=== PATIENT | female | born 1980 | race Caucasian/White ===

== ENCOUNTER 2018-10-28 22:08 | Inpatient (IN) ==
[2018-10-28] MEDS ORDERED: Piperacillin/Tazobactam 3.375 GM in 0.9 % Sodium Chloride Mini Bag 100 ML IVPB ONE (22:28)
--- NOTE | 2018-10-28 22:51 | Emergency Department Note ---
Disposition Clinical Impression: Abscess of right hand, Cellulitis of right hand Disposition: Admitted As Inpatient Condition: Fair Time of Disposition: 01:46 General Adult HPI - General Chief complaint: ED Wound/Laceration Stated complaint: Infection R Hand Time Seen by Provider: 10/28/18 22:24 Source: patient Limitations: no limitations Nursing Notes Reviewed: Yes Vital Signs Reviewed: Yes - History of Present Illness HPI Narrative: 38-year-old female presents from home for evaluation of right hand swelling, redness, pain. Patient actively cut her middle finger at work 4 days ago. She is managing with basic wound care. Did not require any closure or sutures. Today, she noticed redness and puffiness of her hands. She has nguyen where the erythema has progressed. She now has pain in the entirety of her hand extending up her forearm up to her shoulder and into her neck. She has chills. PMH: None Patient takes no daily medications. ROS: Positive: Accidental right middle finger laceration 4 days ago, progressive swelling and erythema of right hand today. Chills, pain radiating up to her ne ck. Negative: Pain with neck movement, other injuries, nausea, vomiting, measured fever Pain Scale: 9 - Related Data Previous Rx's Medication Instructions Recorded Mirtazapine [Remeron] 30 mg PO HS #30 tablet 03/18/16 Acetaminophen [Tylenol] 650 mg PO Q6HR PRN #20 tablet 04/07/16 Naproxen [Naprosyn] 500 mg PO BID PRN #15 tablet 04/08/16 Dicyclomine [Bentyl] 10 mg PO QID PRN #7 capsule 05/28/16 OxyCODONE/APAP 10/325 [Percocet 1 each PO Q6HR PRN #12 tablet 08/12/16 10/325 MG] Potassium Chloride [Klor-Con 10] 10 meq PO BID #14 tablet.er 08/12/16 Ibuprofen [Motrin] 800 mg PO Q8HR PRN #40 tablet 01/22/17 Ondansetron [Zofran] 8 mg PO TID PRN #8 tablet 01/22/17 Ibuprofen [Motrin] 600 mg PO Q6HR PRN #24 tab 03/23/17 Loratadine/Pseudophed (12 HR) 1 each PO BID #20 tab.er.12h 10/02/18 [Claritin D (12HR)] Promethazine/Dextromethorphan 5 ml PO QID #240 syrup 10/02/18 [Promethazine-Dm Syrup] Allergies Allergy/AdvReac Type Severity Reaction Status Date / Time ciprofloxacin [From Cipro] Allergy Hives Verified 10/02/18 13:53 doxycycline Allergy Hives Verified 10/02/18 13:53 Sulfa (Sulfonamide Allergy Hives Verified 10/02/18 13:53 Antibiotics) sulfamethoxazole Allergy Hives Verified 10/02/18 13:53 [From Bactrim] trimethoprim [From Bactrim] Allergy Hives Verified 10/02/18 13:53 All systems ED: reviewed and negative except as stated. 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 She is diaphoretic. Head: atraumatic, normocephalic Eye: normal appearance, PERRL, EOMI, no scleral icterus, no conjunctival injection ENT: mucous membranes moist, normal external ear exam Neck: normal inspection, trachea midline, full ROM Chest: normal inspection, symmetric chest rise Respiratory: Good respiratory effort. Bilateral breath sounds are clear without wheezing, crackles, or rhonchi. Cardiovascular: Tachycardic rate and regular rhythm. No clicks, rubs, gallops, or murmors. Normal heart sounds. Abdomen: Bowel sounds present normoactive. Abdomen is soft, nondistended, and nontender. No guarding or rebound. No organomegaly noted. Musculoskeletal: Pain with movement of right hand, right elbow, right shoulder. Skin: warm, dry, intact. Right hand has dorsal swelling with erythema and warmth that extends just proximal to the right wrist. She has tenderness without erythema extending up to the right shoulder. Neuro: GCS 15. No focal neurologic deficits observed. Psych: Patient's affect is appropriate for situation. - General Limitations: no limitations General appearance: alert Course Course Narrative: SIRS (+) via temp and HR. 12:00 I was called bedside by nursing. Patient has had her vancomycin infusing approximately 20 minutes. She states she has a tingling sensation in her lips and feels as though they are swollen and numb. In regards to a potential allergic reaction, patient does have vancomycin once previously without issue. The medication is infusing into the dorsum of left hand; there is no swelling, erythema, or urticaria. Vital Signs Temperature 102.8 F H 10/28/18 22:09 Pulse Rate 134 10/28/18 22:09 Respiratory Rate 18 10/28/18 22:09 Blood Pressure 155/84 10/28/18 22:09 O2 Sat by Pulse Oximetry 96 10/28/18 22:09 Temperature 102.8 F H 10/28/18 22:09 Pulse Rate 104 10/29/18 00:53 Respiratory Rate 19 10/29/18 00:53 Blood Pressure 110/68 10/29/18 00:53 O2 Sat by Pulse Oximetry 97 10/29/18 00:53 Oxygen Delivery Oxygen Delivery Room Air Medical Decision Making - Lab Data Result diagrams: 10/28/18 22:38 10/28/18 22:38 Lab Results 10/28/18 10/28/18 10/28/18 Range/Units 22:38 22:38 22:38 WBC 27.0 H (4.3-11.1) K/mcL RBC 4.14 (3.82-4.97) M/mcL Hgb 14.2 (11.5-15.4) g/dL Hct 41.4 (35.3-44.9) % MCV 100.0 (83.0-100.0) fL MCH 34.3 H (28.0-33.3) pg MCHC 34.3 (31.6-35.5) g/dL RDW 12.7 (11.5-14.5) % Plt Count 179 (140-400) K/mcL MPV 10.0 (9.4-12.4) fL ESR (0-15) mm/hr Sodium 130 L (136-145) mEq/L Potassium 3.7 (3.5-5.1) mEq/L Chloride 103 (98-107) mEq/L Carbon Dioxide 20 L (23-29) mEq/L BUN 12 (6-20) mg/dL Creatinine 0.97 (0.60-1.20) mg/dL Est GFR ( Amer) > 60 (> 60) Est GFR (Non-Af Amer) > 60 (> 60) BUN/Creatinine Ratio 12 (6-26) Glucose 151 H (70-105) mg/dL Calculated Osmolality 273 L (280-300) Lactic Acid 1.6 (0.5-2.2) mmol/L Calcium 8.7 (8.6-10.3) mg/dL Total Bilirubin 0.7 (0.3-1.0) mg/dL Direct Bilirubin 0.2 (0.0-0.2) mg/dL Indirect Bilirubin 0.5 (0.0-1.2) mg/dL AST 16 (13-39) Units/L ALT 18 (7-52) Units/L Alkaline Phosphatase 65 (34-104) Units/L C-Reactive Protein 239 H (Less than 10) mg/L Serum Total Protein 6.8 (6.4-8.9) g/dL Albumin 3.9 (3.5-5.7) g/dL Globulin 2.9 (2.4-3.5) g/dL Albumin/Globulin Ratio 1.3 (1.1-2.2) Serum , Qual (Negative) 10/28/18 10/29/18 Range/Units 22:38 00:28 WBC (4.3-11.1) K/mcL RBC (3.82-4.97) M/mcL Hgb (11.5-15.4) g/dL Hct (35.3-44.9) % MCV (83.0-100.0) fL MCH (28.0-33.3) pg MCHC (31.6-35.5) g/dL RDW (11.5-14.5) % Plt Count (140-400) K/mcL MPV (9.4-12.4) fL ESR 17 H (0-15) mm/hr Sodium (136-145) mEq/L Potassium (3.5-5.1) mEq/L Chloride (98-107) mEq/L Carbon Dioxide (23-29) mEq/L BUN (6-20) mg/dL Creatinine (0.60-1.20) mg/dL Est GFR ( Amer) (> 60) Est GFR (Non-Af Amer) (> 60) BUN/Creatinine Ratio (6-26) Glucose (70-105) mg/dL Calculated Osmolality (280-300) Lactic Acid (0.5-2.2) mmol/L Calcium (8.6-10.3) mg/dL Total Bilirubin (0.3-1.0) mg/dL Direct Bilirubin (0.0-0.2) mg/dL Indirect Bilirubin (0.0-1.2) mg/dL AST (13-39) Units/L ALT (7-52) Units/L Alkaline Phosphatase (34-104) Units/L C-Reactive Protein (Less than 10) mg/L Serum Total Protein (6.4-8.9) g/dL Albumin (3.5-5.7) g/dL Globulin (2.4-3.5) g/dL Albumin/Globulin Ratio (1.1-2.2) Serum , Qual Negative (Negative) Critical Care Time Critical Care Time: Yes Total Critical Care Time: 37 Attestation: Acute febrile illness with bacteremia and tachycardia requiring IV fluid r esuscitation, IV antibiotics, and emergent surgical consultation and treatment by the orthopedist due to right hand and wrist a ascending cellulitis with abscess Attestation Statement - Attestation Attestation: Dr. Fulton note: Patient was seen in conjunction with emergency medicine resident Dr. Joseph. Please see his charting for complete documentation. I spent [id number] time with the patient and I agree with patient's treatment and disposition. Imaging results, blood work, heart rate all reviewed. Progressive a ascending cellulitis with abscess of the right hand dorsal aspect with swelling and pain to the right elbow or right axillary region over the past 5 days which has been progressive. Arrives febrile and tachycardic. We emergently consult in the orthopedist Dr. Causey who took the patient's the operating room. Cultures were obtained, fluid resuscitation has been done. Images obtained, IV antibiotics/ fluids/ antibiotics given;
[2018-10-28 22:52] LABS: Mean Corpuscular HGB Conc 34.3 g/dL (31.6-35.5)
[2018-10-28 22:53] LABS: Hematocrit 41.4 % (35.3-44.9); Hemoglobin 14.2 g/dL (11.5-15.4); Mean Corpuscular Hemoglobin 34.3 pg (28.0-33.3); Platelet Count 179 K/mcL (140-400); Red Blood Count 4.14 M/mcL (3.82-4.97); Red Cell Distribution Width 12.7 % (11.5-14.5)
[2018-10-28] MEDS: Piperacillin/Tazobactam 3.375 GM in 0.9 % Sodium Chloride Mini Bag 100 ML IVPB ONE ×2 (23:05→23:20)
[2018-10-28 23:12] LABS: Alanine Aminotransferase 18 Units/L (7-52); Albumin 3.9 g/dL (3.5-5.7); Albumin/Globulin Ratio 1.3 (1.1-2.2); Alkaline Phosphatase 65 Units/L (34-104); Aspartate Amino Transferase 16 Units/L (13-39); BUN/Creatinine Ratio 12 (6-26); Bilirubin,Direct 0.2 mg/dL (0.0-0.2); Bilirubin,Indirect 0.5 mg/dL (0.0-1.2); Bilirubin,Total 0.7 mg/dL (0.3-1.0); Blood Urea Nitrogen 12 mg/dL (6-20); Calcium 8.7 mg/dL (8.6-10.3); Carbon Dioxide 20 mEq/L (23-29); Chloride 103 mEq/L (98-107); Globulin 2.9 g/dL (2.4-3.5); Glucose 151 mg/dL (70-105); Osmolality,Calculated 273 (280-300); Potassium 3.7 mEq/L (3.5-5.1); Sodium 130 mEq/L (136-145); Total Protein 6.8 g/dL (6.4-8.9); eGFR For Non-African Americans > 60 (> 60)
[2018-10-28] MEDS ORDERED: Isovue-370 500 ML BOTTLE IVP ONE ×2 (23:17→23:19)
[2018-10-28] MEDS ORDERED: 0.9 % Sodium Chloride 1,000 ML IVC STA (23:30)
[2018-10-29 00:04] LABS: C-Reactive Protein 239 mg/L (Less than 10)
[2018-10-29] MEDS ORDERED: *HR* LORazepam 2 MG/ML VIAL IVP ONE (00:04)
--- NOTE | 2018-10-29 00:39 | Orthopedic Consult Note ---
Date of Encounter: 10/29/18 Time of Encounter: 00:38 Assessment and Plan (1) Abscess of hand Current Visit: Yes Status: Acute I did have a long discussion with the patient regarding the diagnosis. She has an abscess to the dorsal aspect of the hand with sepsis. My recommendation is for urgent incision, drainage, irrigation, and debridement of the right hand. We will keep her on broad-spectrum antibiotics and she will be admitted to the hospitalist. I have ordered a CT scan with contrast to further evaluate the extent of the abscess as well as to evaluate for subcutaneous air. The risks discussed included but were not limited to stiffness, bleeding, infection, blood clots, damage to neurovascular structures, tendons, ligaments, and bone. Also discussed was the risk of continued symptoms and possible need for further procedures. I did discuss the anesthesia risks including stroke, heart attack, and . I did discuss the reasonable, foreseeable postoperative course with the patient. The patient did wish to proceed and consent was obtained. I have reviewed each of the pertinent components of this chart and any other pertinent medical component(s) including but not limited to pertinent application of the chief complaint, history of present illness, current medication, medical history, allergies, family history, medical history, surgical history, social history, review of systems, vital signs, and any other portion of the pertinent patient medical record directly or indirectly involved with this patient care that is pertinent based on my medical decision process. LUIS Beck History of Present Illness HPI: Ms. Bhat is a 38 year old female who presents to the emergency department with a 4 day history of right hand pain. She indicates a prior history of IV drug use, however she says she has been clean for about 3 years or so. She has a severe hand infection with sepsis and I am consulted to assist in the evaluation and management. She indicates that she sustained a cut injury to the dorsal aspect of the long finger, though she says she does not remember being cut. She said this spread into the dorsal hand area and was achy pains that radiate to the shoulder and neck region. She says she has had multiple surgeries on the right hand previously related to carpal tunnel syndrome and bone spur excision. Pain is sharp and achy and worse with any movement of the right hand and better with rest. She denies any numbness, tingling, or any other associated signs or symptoms or modifying factors. She does feel ill. Past Med Surg Social Fam HX - Past Medical History Medical history: fibromyalgia, hypertension Additional medical history: DJD Psychiatric history: anxiety, ADHD, depression, PTSD, previous psychiatric hospitalization - Past Surgical History Surgical History: cholecystectomy, orthopedic, other, other Additional surgical history: ankle sx X 3, numerous hand sx - Social History Smoking Status: Current every day smoker Smokeless Tobacco Status: No Alcohol use: occasionally Drug use: marijuana Medications and Allergies Mirtazapine [Remeron] 30 mg PO HS #30 tablet 03/18/16 [Rx] Acetaminophen [Tylenol] 650 mg PO Q6HR PRN #20 tablet 04/07/16 [Rx] Naproxen [Naprosyn] 500 mg PO BID PRN #15 tablet 04/08/16 [Rx] Dicyclomine [Bentyl] 10 mg PO QID PRN #7 capsule 05/28/16 [Rx] OxyCODONE/APAP 10/325 [Percocet 10/325 MG] 1 each PO Q6HR PRN #12 tablet 08/12/16 [Rx] Potassium Chloride [Klor-Con 10] 10 meq PO BID #14 tablet.er 08/12/16 [Rx] Ibuprofen [Motrin] 800 mg PO Q8HR PRN #40 tablet 01/22/17 [Rx] Ondansetron [Zofran] 8 mg PO TID PRN #8 tablet 01/22/17 [Rx] Ibuprofen [Motrin] 600 mg PO Q6HR PRN #24 tab 03/23/17 [Rx] Loratadine/Pseudophed (12 HR) [Claritin D (12HR)] 1 each PO BID #20 tab.er.12h 10/02/18 [Rx] Promethazine/Dextromethorphan [Promethazine-Dm Syrup] 5 ml PO QID #240 syrup 10/02/18 [Rx] Allergy/AdvReac Type Severity Reaction Status Date / Time ciprofloxacin [From Cipro] Allergy Hives Verified 10/02/18 13:53 doxycycline Allergy Hives Verified 10/02/18 13:53 Sulfa (Sulfonamide Allergy Hives Verified 10/02/18 13:53 Antibiotics) sulfamethoxazole Allergy Hives Verified 10/02/18 13:53 [From Bactrim] trimethoprim [From Bactrim] Allergy Hives Verified 10/02/18 13:53 All Systems Reviewed: Constitutional -The patient denies any fevers, chills, or feelings of illness Neurologic -The patient denies any numbness, tingling, or burning pains Physical Exam - Constitutional Vitals: Temp Pulse Resp BP Pulse Ox 102.8 F H 114 22 157/108 98 10/28/18 22:09 10/29/18 00:06 10/29/18 00:06 10/29/18 00:06 10/29/18 00:06 CONSTITUTIONAL -Vitals reviewed -The patient is well developed, well nourished, well groomed PSYCHIATRIC -Fully alert and oriented -Pleasant mood RIGHT UPPER EXTREMITY Inspection shows moderate swelling over the dorsal aspect of the right hand with significant tenderness in this region. There is a very small well-healed 5 mm transverse wound over the long finger PIP joint region, however this appears to be very superficial and scabbed over well. There does not appear to be any infection in this region. There is mild erythema localized to the dorsal hand region. There is associated palpable fluctuance in the dorsal hand without significant induration. I can gently passively range the wrist, elbow, and shoulder without significant pain. She can gently flex and extend the digits though there is some limitation due to pain inhibition. The fingertips are all grossly sensate and well-perfused, and the radial artery pulse is 2+. Results - Labs Result Diagrams: 10/28/18 22:38 10/28/18 22:38 Labs: Abnormal lab results WBC 27.0 K/mcL (4.3-11.1) H 10/28/18 22:38 MCH 34.3 pg (28.0-33.3) H 10/28/18 22:38 ESR 17 mm/hr (0-15) H 10/28/18 22:38 Sodium 130 mEq/L (136-145) L 10/28/18 22:38 Carbon Dioxide 20 mEq/L (23-29) L 10/28/18 22:38 Glucose 151 mg/dL (70-105) H 10/28/18 22:38 273 (280-300) L 10/28/18 22:38 239 mg/L (Less than 10) H 10/28/18 22:38 H & H 10/28/18 Range/Units 22:38 Hgb 14.2 (11.5-15.4) g/dL Hct 41.4 (35.3-44.9) % All other labs normal. Consult Discharge Plan - Plan Referrals: NONE,PCP [Primary Care Provider] -
[2018-10-29] MEDS ORDERED: 0.9 % Sodium Chloride 1,000 ML ONE (00:44)
[2018-10-29] MEDS ORDERED: 0.9 % Sodium Chloride 1,000 ML IVC ONE (00:52)
[2018-10-29] MEDS ORDERED: Bupivacaine/EPI 1:200k 0.5%PF 30 ML VIAL ONE (01:19)
[2018-10-29] MEDS ORDERED: Lidocaine 1% 20 ML MDV ONE (01:19)
[2018-10-29] MEDS ORDERED: Lidocaine/EPI 1:100k 1% 20 ML VIAL ONE (01:19)
[2018-10-29] MEDS ORDERED: Albuterol 2.5 MG/3 ML NEBULIZER ONE (01:28)
--- NOTE | 2018-10-29 01:28 | Anesthesia Evaluation PreOp ---
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: Other (FIBROMYALGIA, ANXIETY, DEPRESSION,) Anesthesia History: No Prior Anesthetic Complications, Past Anesthesia : No Test: Negative Alcohol Use: occasionally Drug use: marijuana Medications and Allergies Mirtazapine [Remeron] 30 mg PO HS #30 tablet 03/18/16 [Rx] Acetaminophen [Tylenol] 650 mg PO Q6HR PRN #20 tablet 04/07/16 [Rx] Naproxen [Naprosyn] 500 mg PO BID PRN #15 tablet 04/08/16 [Rx] Dicyclomine [Bentyl] 10 mg PO QID PRN #7 capsule 05/28/16 [Rx] OxyCODONE/APAP 10/325 [Percocet 10/325 MG] 1 each PO Q6HR PRN #12 tablet 08/12/16 [Rx] Potassium Chloride [Klor-Con 10] 10 meq PO BID #14 tablet.er 08/12/16 [Rx] Ibuprofen [Motrin] 800 mg PO Q8HR PRN #40 tablet 01/22/17 [Rx] Ondansetron [Zofran] 8 mg PO TID PRN #8 tablet 01/22/17 [Rx] Ibuprofen [Motrin] 600 mg PO Q6HR PRN #24 tab 03/23/17 [Rx] Loratadine/Pseudophed (12 HR) [Claritin D (12HR)] 1 each PO BID #20 tab.er.12h 10/02/18 [Rx] Promethazine/Dextromethorphan [Promethazine-Dm Syrup] 5 ml PO QID #240 syrup 0 10/02/18 [Rx] Allergy/AdvReac Type Severity Reaction Status Date / Time ciprofloxacin [From Cipro] Allergy Hives Verified 10/02/18 13:53 doxycycline Allergy Hives Verified 10/02/18 13:53 Sulfa (Sulfonamide Allergy Hives Verified 10/02/18 13:53 Antibiotics) sulfamethoxazole Allergy Hives Verified 10/02/18 13:53 [From Bactrim] trimethoprim [From Bactrim] Allergy Hives Verified 10/02/18 13:53 - Meds/Allergy Pre-op Review Medications Reviewed: Yes Allergies Reviewed: Yes Anesthesia Results - Labs 10/28/18 22:38 10/28/18 22:38 Anesthesia Exam Vital Signs/O2 Sat/Glucose, Most Recent Temp Pulse Resp BP Pulse Ox 102.8 F H 104 19 110/68 97 10/28/18 22:09 10/29/18 00:53 10/29/18 00:53 10/29/18 00:53 10/29/18 00:53 Weight: 81 KG - BMI 30 NPO (# of Hours): 8 - HEENT Mallampati: II Teeth: Edentulous - Cardiac Rhythm: Regular - Pulmonary Breath Sounds: bilateral Clear Anesthesia Assess/Plan ASA Score: 2, E Anesthetic Plan: General Monitoring Plan: Standard Monitors Recovery Plan: PACU
[2018-10-29] MEDS ORDERED: *HR* OxyCODONE Immed Rel 5 MG TABLET PO PRN ×2 (01:35→03:19)
[2018-10-29] MEDS ORDERED: Acetaminophen IV 1,000 MG/100 ML INFUS..BTL IVPB ONE ×2 (01:35→03:19)
[2018-10-29] MEDS ORDERED: *HR* HYDROmorphone (PF) 1 MG/ML SYRINGE IVP PRN ×2 (01:35→03:19)
[2018-10-29] MEDS ORDERED: *HR* FentaNYL (PF) 100 MCG/2 ML VIAL ONE (01:41)
[2018-10-29] MEDS ORDERED: *HR* Propofol 200 MG/20 ML VIAL IVP ONE (01:41)
[2018-10-29] MEDS ORDERED: Lidocaine -MPF 2% 2 ML VIAL ONE (01:48)
[2018-10-29] MEDS ORDERED: *HR* HYDROMORPHONE 2 MG/ML VIAL ONE (01:51)
[2018-10-29] MEDS ORDERED: Ketorolac 30 MG/ML VIAL ONE (01:51)
[2018-10-29] MEDS ORDERED: Ondansetron 4 MG/2 ML VIAL ONE (01:56)
--- NOTE | 2018-10-29 02:24 | Orthopedic Operative Note ---
Date of procedure: 10/29/18 Procedure: OPERATIVE REPORT SURGEON: Ervin Ricks MD PREOPERATIVE DIAGNOSIS: Right dorsal hand abscess POSTOPERATIVE DIAGNOSIS: Right dorsal hand abscess PROCEDURE: Incision, drainage, irrigation, debridement of the right dorsal hand ANESTHESIA: Gen. anesthesia SPECIMENS: Swabs of the dorsal hand for culture PREOPERATIVE NOTE The surgical plan was reviewed with the patient. The risks, benefits, alternatives, and potential complications of this procedure were discussed with the patient including injury to veins, arteries, nerves, tendons, ligaments, and bone. Also discussed were the risks of infection, bleeding, pain, blood clots, the possible need for a blood transfusion, the possible need for further procedures, heart attack, stroke, and . Additional risks include persistent symptoms despite surgery and the need for further debridements. All of this was explained in simple terms, and the patient verbalized understanding and wished to proceed. Consent was given to proceed with surgery. PROCEDURE: The patient was seen in the preoperative holding area where the identify and the consent were confirmed. The right hand was marked. Final questions were answered. The patient was brought back to the operating room and placed supine on the operating room table. A huddle was performed with the patient and all vital surgical team members confirming patient identity, the correct procedure, and the correct operative site. Gen. anesthesia was administered. The op erative extremity was prepped and draped in the usual sterile fashion. A surgical time out was performed immediately preceding the incision with all personnel in the operating room to confirm patient identity, the correct operative site and extremity, correct radiographic studies, availability of appropriate surgical equipment, and agreement on the planned procedure. The tourniquet was inflated without exsanguination. Next extensile dorsal longitudinal incision measuring about 10 cm was placed on the mid dorsal aspect of the hand and dissection proceeded carefully through the skin and the s ubcutaneous tissue. Once the area where tissue was opened, copious amounts of grossly purulent material was evacuated which tracked deep to the extensor tendons. The area was swabbed for cultures. This area was spread open and copiously irrigated with 3 L of saline. There is no significant necrotic material. There was dense scarring superficial to the extensor tendons which was sharply debrided. After final irrigation of another 3 L of saline the wound was very loosely closed just in the center portion over a [place] drain to allow adequate drainage. A soft, sterile dressing was applied. The instrument, sponge, and needle counts were correct after wound closure. POST OPERATIVE PLAN: Continue IV antibiotics and will follow clinically. Was there an logging assistant present: No Estimated blood loss (cc): 5
[2018-10-29] MEDS ORDERED: *HR* Nalbuphine 10 MG/ML AMPUL ONE (02:26)
--- NOTE | 2018-10-29 02:38 | Anesthesia Evaluation Post Op ---
Date of Encounter: 10/29/18 Time of Encounter: 03:05 - Discharge PostOp Status: Transfer Patient to floor (Patient's vital signs have been reviewed. Patient is stable postoperatively and has adequately recovered from anesthesia. Patient is determined to have stable airway patency and respiratory function including respiratory rate and oxygen saturation. Patient has a stable heart rate, blood pressure and adequate hydration. Patients mental status is acceptable. Patients temperature is appropriate. Pain and nausea are adequately controlled.)
[2018-10-29] MEDS ORDERED: Isovue-370 500 ML BOTTLE IVP ONE (03:19)
[2018-10-29] MEDS ORDERED: Naloxone 0.4 MG/ML INJ IVP PRN (03:50)
--- NOTE | 2018-10-29 03:54 | Internal Med History&Physical ---
Date of Encounter: 10/29/18 Time of Encounter: 03:53 Internal Medicine - H&P: HPI Chief complaint: arm pain Admitted From: Home Plans for Post Hospital Care: Home History of present illness: Nel Bhat is a 38 year old woman with substance use disorder and depression who presented to the ER with 4 days of right hand pain and swelling that developed after suffering a cut to her middle finger at work reportedly. She had been applying basic wound care but progressively worsened to a point of puffiness and progression of the erythema. She now had pain going from her hand up into the length of her arm as well as chills. On arrival here she was febrile and tachycardic. Lab worked revealed leukocytosis of 27.0 and CRP of 239. She was started on vancomycin but developed a systemic allergic reaction prompting stoppage and diphenhydramine. She has seen by the orthopedic service with the recommendation to undergo urgent incision and drainage of the dorsal hand infection and was taken to the OR where copious amounts of grossly purulent material was evacuated that had tracked deep to the extensor tendons. She is admitted to the medicine service for further care. Vitals: Reviewed General: Well-developed woman in NAD Skin: Warm and supple. HEENT: Moist mucous membranes. No conjunctivae pallor. Neck: No lymphadenopathy. No JVD. No carotid bruits. No palpable thyroid. Chest: Normal thoracic expansion. Normal breath sounds. Clear to auscultation. Heart: Normal S1 & S2; rhythmic. No rubs or murmurs. Abdomen: Non-distended, soft and non-tender to palpation. No peritoneal reaction. Extremities: Right forearm covered in bandage. Able to move fingers. No cyanosis. Neurological: Awake, alert and oriented to person, place and time. No focal deficits. Psych: Affect appropriate. Assessment/Plan 1. Sepsis secondary to right hand skin/soft tissue infection: Given allergy to vancomycin and other agents already listed, will recommend a trial of weight based daptomycin if intolerant to vancomycin. Monitor tissue and blood cultures. Analgesics as needed. Keep arm elevated. 2. Substance use disorder: Will check UDS. Says she has been clean for a long time. 5 minutes were spent counseling and educating the patient on this habit. dietary services director and resources were made available. 3. Depressive disorder: No active signs of SI or thoughts of self-harm. 4. DVT prophylaxis: SubQ heparin ordered. Past Med Surg Social Fam HX - Past Medical History Medical history: fibromyalgia, hypertension Additional medical history: DJD Psychiatric history: anxiety, ADHD, depression, PTSD, previous psychiatric hospitalization - Past Surgical History Surgical History: cholecystectomy, orthopedic, other, other Additional surgical history: ankle sx X 3, numerous hand sx - Social History Smoking Status: Current every day smoker Smokeless Tobacco Status: No Alcohol use: occasionally Drug use: marijuana Internal Medicine - H&P: Meds Mirtazapine [Remeron] 30 mg PO HS #30 tablet 03/18/16 [Rx] Acetaminophen [Tylenol] 650 mg PO Q6HR PRN #20 tablet 04/07/16 [Rx] Naproxen [Naprosyn] 500 mg PO BID PRN #15 tablet 04/08/16 [Rx] Dicyclomine [Bentyl] 10 mg PO QID PRN #7 capsule 05/28/16 [Rx] OxyCODONE/APAP 10/325 [Percocet 10/325 MG] 1 each PO Q6HR PRN #12 tablet 08/12/16 [Rx] Potassium Chloride [Klor-Con 10] 10 meq PO BID #14 tablet.er 08/12/16 [Rx] Ibuprofen [Motrin] 800 mg PO Q8HR PRN #40 tablet 01/22/17 [Rx] Ondansetron [Zofran] 8 mg PO TID PRN #8 tablet 01/22/17 [Rx] Ibuprofen [Motrin] 600 mg PO Q6HR PRN #24 tab 03/23/17 [Rx] Loratadine/Pseudophed (12 HR) [Claritin D (12HR)] 1 each PO BID #20 tab.er.12h 10/02/18 [Rx] Promethazine/Dextromethorphan [Promethazine-Dm Syrup] 5 ml PO QID #240 syrup 10/02/18 [Rx] Allergy/AdvReac Type Severity Reaction Status Date / Time ciprofloxacin [From Cipro] Allergy Hives Verified 10/02/18 13:53 doxycycline Allergy Hives Verified 10/02/18 13:53 Sulfa (Sulfonamide Allergy Hives Verified 10/02/18 13:53 Antibiotics) sulfamethoxazole Allergy Hives Verified 10/02/18 13:53 [From Bactrim] trimethoprim [From Bactrim] Allergy Hives Verified 10/02/18 13:53 All Systems PM: A 10-system review of systems was performed and is negative for pertinent findings except as documented above in the HPI. Family history reviewed and found non-contributory. - Constitutional Vitals: Temp Pulse Resp BP Pulse Ox 98.1 F 116 16 122/58 94 10/29/18 03:34 10/29/18 03:34 10/29/18 03:34 10/29/18 03:34 10/29/18 03:34 Exam: . Internal Med - H&P Results - Labs CBC & Chem 7: 10/28/18 22:38 10/28/18 22:38 Labs: Short CBC 10/28/18 Range/Units 22:38 WBC 27.0 H (4.3-11.1) K/mcL Hgb 14.2 (11.5-15.4) g/dL Hct 41.4 (35.3-44.9) % Plt Count 179 (140-400) K/mcL BMP 10/28/18 22:38 Sodium 130 L Potassium 3.7 Chloride 103 Carbon Dioxide 20 L BUN 12 Creatinine 0.97 Glucose 151 H Calcium 8.7 Liver Function 10/28/18 Range/Units 22:38 Total Bilirubin 0.7 (0.3-1.0) mg/dL Direct Bilirubin 0.2 (0.0-0.2) mg/dL AST 16 (13-39) Units/L ALT 18 (7-52) Units/L Alkaline Phosphatase 65 (34-104) Units/L Albumin 3.9 (3.5-5.7) g/dL - Impressions ITS Impressions Upper Extremity CT 10/29/18 23:17 IMPRESSION: Soft tissue edema and inflammation along the dorsal aspect of the hand. No fluid collection. D/ / Yanely Pop MD / Yanely Pop MD Interpreting Provider: Yanely Pop MD - Time Spent With Patient Total time spent is greater than 50% in coordination of care (as documented) at patient's floor/unit and/or counseling patient: Greater than 35 minutes
[2018-10-29] MEDS ORDERED: Clindamycin 900 MG/50 ML 900 MG/50 ML IV.SOLN IVPB SCH (04:00)
--- NOTE | 2018-10-29 04:40 | Event Note ---
Date of Encounter: 10/29/18 Time of Encounter: 04:35 Alerted by patient's nurse BHARGAVI Gallo that patient has vancomycin ordered at 11:00. Patient had vancomycin in ED and reported lips were tingling and swelling. ED gave Benadryl. Discussed patient with Dr. Pfeiffer before with recommendation to DC vancomycin and clindamycin and replace with daptomycin 500 mg daily with first dose at 09:00. Nurse instructed to monitor patient very closely and alert me immediately of any adverse or allergic reactions.
[2018-10-29] MEDS: Ringers Solution, Lactated 1,000 ML IVC SCH ×2 (05:01→15:23)
--- NOTE | 2018-10-29 08:15 | Event Note ---
Date of Encounter: 10/29/18 Time of Encounter: 08:15 Seen and assessed and agree with plan per night team Plan Right hand cellulitis. S/p debridement by orthopedic surgery. Appeared to have an allergy to vanc or zosyn in the ER with tongue numbness and tingling. Swithced to daptpmycin. Cefepime and metronidazole added to regimen. ID recs appreciated
[2018-10-29] MEDS: *HR* Heparin 5,000 UNIT/ML VIAL SQ SCH ×2 (08:45→16:45)
[2018-10-29] MEDS: DAPTOmycin 500 MG in 0.9 % Sodium Chloride 100 ML IVPB SCH (08:46)
[2018-10-29] MEDS: traMADol 50 MG TABLET PO PRN ×3 (08:54→22:07)
[2018-10-29] MEDS ORDERED: DAPTOmycin 500 MG in 0.9 % Sodium Chloride 100 ML IVPB SCH (09:00)
[2018-10-29] MEDS ORDERED: Aminoglycoside Consult 1 EACH MC ONE (10:27)
[2018-10-29] MEDS: Cefepime HCl 2,000 MG in 0.9 % Sodium Chloride Mini Bag 100 ML IVPB SCH ×2 (11:35→16:45)
[2018-10-29] MEDS: Acetaminophen 325 MG TABLET PO PRN ×2 (11:35→18:33)
[2018-10-29 12:02] LABS: Hematocrit 38.8 % (35.3-44.9); Lymphocytes # 1.7 K/mcL (0.6-4.6); Mean Corpuscular HGB Conc 33.5 g/dL (31.6-35.5); Mean Corpuscular Hemoglobin 34.1 pg (28.0-33.3); Mean Corpuscular Volume 101.8 fL (83.0-100.0); Mean Platelet Volume 10.1 fL (9.4-12.4); Platelet Count 177 K/mcL (140-400); Red Blood Count 3.81 M/mcL (3.82-4.97); Red Cell Distribution Width 13.2 % (11.5-14.5)
[2018-10-29 12:19] LABS: BUN/Creatinine Ratio 15 (6-26); Blood Urea Nitrogen 12 mg/dL (6-20); Calcium 8.4 mg/dL (8.6-10.3); Carbon Dioxide 20 mEq/L (23-29); Chloride 111 mEq/L (98-107); Glucose 123 mg/dL (70-105); Osmolality,Calculated 287 (280-300); Sodium 138 mEq/L (136-145); eGFR For Non-African Americans > 60 (> 60)
[2018-10-29 12:38] LABS: Basophils # 0.4 K/mcL (0.0-0.2); Neutrophils # 18.8 K/mcL (1.6-8.9); Reactive Lymphocytes Present (Not Present)
[2018-10-29 12:39] LABS: Platelet Estimate Normal (Normal)
--- NOTE | 2018-10-29 13:29 | Infectious Disease Consult ---
Infectious Disease-Consult - Encounter Date/Time Date of Encounter: 10/29/18 Time of Encounter: 13:24 - Data of Consult Patient: new to practice Reason for consult: Right hand cellulitis Consult date: 10/29/18 Requesting Physician: Perry Morillo MD Primary Care Provider: PCP NONE - HPI HPI: Patient is a 38-year-old woman who presented to [facility] with right hand abscess and cellulitis. We are consulted today for antibiotics recommendations. Patient is a 38-year-old woman with history of IV drug use. She adamantly states that she has not used drugs in the last 3 years. She also has a history of hepatitis C and history of MRSA in the remote past presented to [facility] with a 4 day course of pain and swelling of the right hand. Patient apparently tells us that she had a cup worth of her middle finger but most of the pain and swelling was in the palm of her hand. Patient also admitted to having fevers chills and rigors at home. Since admission, MAXIMUM TEMPERATURE is 102.8, tachycardic no tachypnea. Presenting WBC was 27,000. patient had 30% Bands. BUN/Cr 12/0.81. ESR/Crp 1 239. Blood cultures x2 on 10/[address] of right UE reveals "Soft tissue edema and inflammation along the dorsal aspect of the hand. No fluid collection." Patient underwent incision, drainage, irrigation and debridement of the right dorsal hand by Dr. Causey on 10/29/2018. All are report reveals copious amounts of grossly purulent material was evacuated and tracked deep to the extensor tendons. Cultures were sent. Patient is on daptomycin and cefepime. We were asked to evaluate the patient's make further recommendations. Patient was started on vancomycin and she stated she had numbness of her lips and swelling of her tongue. Vancomycin. Patient was switched to daptomycin. Patient does not recall what allergy so she have to Doxy, sulfa, and Cipro. She does tell me that previously she had Bactrim and was given a combination of these 2 antibiotics and she had hives and they do not know which one caused it. Patient currently admits to URI symptoms. She said she has been fighting a cold for a couple weeks. Patient denies any chest pain or shortness of breath. No pleuritic chest pain. She does have cough. No sputum production. Patient denies nausea or vomiting. She denies any constipation but she does have diarrhea which she says is normal for her. Patient tells me she has history of chronic diarrhea. Patient denies any urinary symptoms no rash no joint pain. - ROS Review of Systems: 10 point review of systems done, negative other for what mentioned in history of present illness - Results CBC & Chem 7: 10/29/18 11:31 10/29/18 11:31 - Exam Vitals: Temp Pulse Resp BP Pulse Ox 98.6 F 101 16 120/73 96 10/29/18 12:16 10/29/18 12:16 10/29/18 12:16 10/29/18 12:16 10/29/18 12:16 Exam: GENERAL: Laying in bed, appears comfortable. HEAD: Normocephalic atraumatic EYES: PERRLA, EOMI, no conjunctival hemorrhage, sclera anicteric ENT: Mucous membranes moist, no oral thrush NECK: Supple. No meningeal signs. No masses LUNGS: Chest expanding symmetrically. bilateral exp wheezing CV: RRR, S1S2, I did not appreciate any murmur ABDOMEN: Soft, nontender, nondistended. Bowel sounds audible BACK: No CVA tenderness. Normal inspection. No tenderness over the spine EXTREMITY: Right hand/wrist surgically wrapped. SKIN: Normal color. No rash. NEURO: Awake alert oriented 3. No obvious focal deficit PSYCH: Calm and appropriate. No agitation. Mirtazapine [Remeron] 30 mg PO HS #30 tablet 03/18/16 [Rx] Acetaminophen [Tylenol] 650 mg PO Q6HR PRN #20 tablet 04/07/16 [Rx] Naproxen [Naprosyn] 500 mg PO BID PRN #15 tablet 04/08/16 [Rx] Dicyclomine [Bentyl] 10 mg PO QID PRN #7 capsule 05/28/16 [Rx] OxyCODONE/APAP 10/325 [Percocet 10/325 MG] 1 each PO Q6HR PRN #12 tablet 08/12/16 [Rx] Potassium Chloride [Klor-Con 10] 10 meq PO BID #14 tablet.er 08/12/16 [Rx] Ibuprofen [Motrin] 800 mg PO Q8HR PRN #40 tablet 01/22/17 [Rx] Ondansetron [Zofran] 8 mg PO TID PRN #8 tablet 01/22/17 [Rx] Ibuprofen [Motrin] 600 mg PO Q6HR PRN #24 tab 03/23/17 [Rx] Loratadine/Pseudophed (12 HR) [Claritin D (12HR)] 1 each PO BID #20 tab.er.12h 10/02/18 [Rx] Promethazine/Dextromethorphan [Promethazine-Dm Syrup] 5 ml PO QID #240 syrup 10/02/18 [Rx] Allergy/AdvReac Type Severity Reaction Status Date / Time ciprofloxacin [From Cipro] Allergy Hives Verified 10/02/18 13:53 doxycycline Allergy Hives Verified 10/02/18 13:53 Sulfa (Sulfonamide Allergy Hives Verified 10/02/18 13:53 Antibiotics) sulfamethoxazole Allergy Hives Verified 10/02/18 13:53 [From Bactrim] trimethoprim [From Bactrim] Allergy Hives Verified 10/02/18 13:53 - Assessment and Plan (1) Sepsis Current Visit: Yes Status: Acute Had 3 SIRS criteria on admission Secondary to right hand cellulitis/abscess SNOMED Code(s): 04512472 (2) Polysubstance dependence Current Visit: No Status: Acute check hepatitis B and HIV SNOMED Code(s): 75793445 (3) Abscess of right hand Current Visit: Yes Status: Acute 10/29/2018 status post incision, drainage, irrigation, debridement of right hand by Dr. Causey. Intra-Op with copious amount of purulence. Cultures sent Agree with broad-spectrum antibiotics including daptomycin and cefepime Check baseline CK level Duration of treatment depends on the clinical picture and culture results We will discuss with the orthopedic team as well I am not sure if we can send the patient home with a PICC line SNOMED Code(s): 96904764412351755 (4) Cellulitis of right hand Current Visit: Yes Status: Acute SNOMED Code(s): 90940828 (5) Allergy to multiple antibiotics Current Visit: Yes Status: Acute Does not recall allergic reaction that she have SNOMED Code(s): 757842552198752 (6) Hepatitis C Current Visit: Yes Status: Acute Dx in 03/2016 Never treated Qualifiers: Viral hepatitis chronicity: chronic Hepatic coma status: without hepatic coma Qualified Code(s): B18.2 - Chronic viral hepatitis C SNOMED Code(s): 37362477 (7) Depressive disorder Current Visit: No Status: Acute SNOMED Code(s): 44312370 (8) Anxiety disorder Current Visit: No Status: Acute Qualifiers: Anxiety disorder type: unspecified anxiety disorder Qualified Code(s): F41.9 - Anxiety disorder, unspecified SNOMED Code(s): 602291880 Past Med Surg Social Fam HX - Past Medical History Medical history: fibromyalgia, hypertension Additional medical history: DJD Psychiatric history: anxiety, ADHD, depression, PTSD, previous psychiatric hospitalization - Past Surgical History Surgical History: cholecystectomy, orthopedic, other, other Additional surgical history: ankle sx X 3, numerous hand sx - Social History Smoking Status: Current every day smoker Smokeless Tobacco Status: No Alcohol use: occasionally Drug use: marijuana Consult Discharge Plan - Plan Referrals: NONE,PCP [Primary Care Provider] -
[2018-10-29] MEDS: MetroNIDAZOLE 500 MG/100 ML 500 MG/100 ML BAG IVPB SCH (15:22)
--- NOTE | 2018-10-29 19:35 | Orthopedics Progress Note ---
Date of Encounter: 10/29/18 Time of Encounter: 19:33 - Assessment and Plan (1) Abscess of hand Current Visit: Yes Status: Acute Subjective Interval history: S: Resting in bed comfortably Significant improvement in the pain to the right dorsal wrist area Expected postoperative pain O: Afebrile on the vital signs are stable Right dorsal hand wound evaluated. Hollsopple drain is in place. Improvement in the swelling and redness No purulence Improved motion of the digits The fingertips are all grossly sensate and well-perfused, and the radial artery pulse is 2+. Cultures are pending A: Post I&D of the right dorsal wrist P: Continue local wound care Anticipate drain removal tomorrow Elevation Broad-spectrum antibiotics until cultures delineate; ID on board Motion exercises to reduce the risk of stiffness. Objective Vital signs: Vital Signs Temp Pulse Resp BP Pulse Ox 10/29/18 16:10 98.7 F 97 16 118/69 96 10/29/18 12:16 98.6 F 101 16 120/73 96 10/29/18 06:30 98.1 F 92 16 97/64 96 10/29/18 05:46 98.3 F 92 16 114/74 96 10/29/18 04:30 98.2 F 101 17 106/71 95 10/29/18 04:07 98.1 F 97 16 112/77 96 10/29/18 03:34 98.1 F 116 16 122/58 94 10/29/18 03:10 99.3 F 96 16 115/84 96 10/29/18 03:00 99.3 F 100 16 116/72 93 10/29/18 02:50 101 18 107/52 95 10/29/18 02:40 99 16 122/81 93 10/29/18 02:30 99.0 F 98 12 99/69 97 10/29/18 00:53 104 19 110/68 97 10/29/18 00:06 114 22 157/108 98 10/28/18 22:09 102.8 F H 134 18 155/84 96 Intake and Output 10/29/18 10/29/18 10/29/18 07:59 15:59 23:59 Intake Total 1021.6 / 3261.6 1800 / 3261.6 440 / 3261.6 Output Total 5 / 5 0 / 5 Balance 1016.6 / 3256.6 1800 / 3256.6 440 / 3256.6 Intake: IV Fluids 1021.6 / 2321.6 1100 / 2321.6 200 / 2321.6 0.9 % Sodium Chloride 1,000 ML 1000 / 1000 @ 999 mls/hr IVC .Q1H1M STA Rx# :[id number] Lactated Ringers 1,000 ML @ 125 1000 / 1000 mls/hr IVC .Q8H RONI Rx#: [id number] Maxipime 2,000 MG In 0.9 % 100 / 100 Sodium Chloride (Mini-Bag +) 100 ML @ 200 mls/hr IVPB Q12HR RONI Rx#:[id number] Cubicin 500 MG In 0.9 % Sodium 100 / 100 Chloride 100 ML @ 200 mls/hr IVPB Q24H RONI Rx#:[id number] Flagyl Premix 500 MG/100 ML 500 100 / 100 mg In 100 ml @ 100 mls/hr IVPB Q8HR RONI Rx#:[id number] Vancocin 1,500 MG In 0.9 % 21.6 / 21.6 Sodium Chloride 250 ML @ 166.67 mls/hr IVPB ONCE ONE Rx#: [id number] Oral 700 / 940 240 / 940 Output: Urine 0 / 0 Estimated Blood Loss 5 / 5 Other: Meal Breakfast Dinner Percent of Meal Consumed 100% 100% # Voids 1 - Labs CBC & BMP: 10/29/18 11:31 10/29/18 11:31 Labs: Abnormal lab results WBC 21.8 K/mcL (4.3-11.1) H 10/29/18 11:31 RBC 3.81 M/mcL (3.82-4.97) L 10/29/18 11:31 MCV 101.8 fL (83.0-100.0) H 10/29/18 11:31 MCH 34.1 pg (28.0-33.3) H 10/29/18 11:31 30.0 % (0-4) H 10/29/18 11:31 4.0 % (0) H 10/29/18 11:31 18.8 K/mcL (1.6-8.9) H 10/29/18 11:31 0.4 K/mcL (0.0-0.2) H 10/29/18 11:31 Present (Not Present) A 10/29/18 11:31 ESR 17 mm/hr (0-15) H 10/28/18 22:38 Sodium 130 mEq/L (136-145) L 10/28/18 22:38 Chloride 111 mEq/L (98-107) H 10/29/18 11:31 Carbon Dioxide 20 mEq/L (23-29) L 10/29/18 11:31 Glucose 123 mg/dL (70-105) H 10/29/18 11:31 273 (280-300) L 10/28/18 22:38 Calcium 8.4 mg/dL (8.6-10.3) L 10/29/18 11:31 239 mg/L (Less than 10) H 10/28/18 22:38 Consult Discharge Plan - Plan Referrals: NONE,PCP [Primary Care Provider] -
[2018-10-29 21:40] LABS: Amphetamine Screen,Urine Negative ng/mL (Cutoff=1000); Barbiturate Screen,Urine Negative ng/mL (Cutoff=200); Benzodiazepines Screen,Urine Negative ng/mL (Cutoff=200); Cannabinoid Screen,Urine Positive ng/mL (Cutoff = 50); Cocaine Screen,Urine Negative ng/mL (Cutoff= 300); Opiate Screen,Urine Negative ng/mL (Cutoff=300); Phencyclidine Screen,Urine Negative ng/mL (Cutoff=25)
[2018-10-29] MEDS: Nicotine 21 MG PATCH.TD24 TD SCH (22:07)
[2018-10-30] MEDS: MetroNIDAZOLE 500 MG/100 ML 500 MG/100 ML BAG IVPB SCH ×3 (00:22→17:20)
[2018-10-30] MEDS: Acetaminophen 325 MG TABLET PO PRN (00:35)
[2018-10-30] MEDS: traMADol 50 MG TABLET PO PRN ×3 (04:25→20:48)
[2018-10-30] MEDS: *HR* Heparin 5,000 UNIT/ML VIAL SQ SCH ×2 (05:17→18:15)
[2018-10-30] MEDS: Cefepime HCl 2,000 MG in 0.9 % Sodium Chloride Mini Bag 100 ML IVPB SCH (05:18)
[2018-10-30 05:34] LABS: Basophils % 0.2 %; Eosinophils # 0.1 K/mcL (0.0-0.6); Eosinophils % 0.8 %; Hemoglobin 12.3 g/dL (11.5-15.4); Immature Granulocytes % 1.1 % (0-4); Lymphocytes # 2.7 K/mcL (0.6-4.6); Lymphocytes % 17.5 %; Mean Corpuscular HGB Conc 33.2 g/dL (31.6-35.5); Mean Corpuscular Hemoglobin 34.4 pg (28.0-33.3); Mean Corpuscular Volume 103.4 fL (83.0-100.0); Mean Platelet Volume 10.2 fL (9.4-12.4); Monocytes # 0.6 K/mcL (0.0-1.3); Monocytes % 3.9 %; Platelet Count 170 K/mcL (140-400); Red Blood Count 3.58 M/mcL (3.82-4.97); Red Cell Distribution Width 13.1 % (11.5-14.5); Segmented Neutrophils % 76.5 %
[2018-10-30 05:53] LABS: BUN/Creatinine Ratio 12 (6-26); Blood Urea Nitrogen 9 mg/dL (6-20); Calcium 8.6 mg/dL (8.6-10.3); Carbon Dioxide 22 mEq/L (23-29); Chloride 108 mEq/L (98-107); Creatine Kinase 32 Units/L (30-223); Glucose 97 mg/dL (70-105); Magnesium 1.8 mg/dL (1.6-2.6); Osmolality,Calculated 279 (280-300); Phosphorous 2.1 mg/dL (2.7-4.5); Potassium 3.8 mEq/L (3.5-5.1); Sodium 135 mEq/L (136-145); eGFR For Non-African Americans > 60 (> 60)
[2018-10-30 06:41] LABS: Hepatitis B Surface Antibody 611.65 mIU/mL
[2018-10-30 06:51] LABS: Hepatitis B Surface Antigen Nonreactive (Nonreactive)
[2018-10-30 07:20] LABS: HIV-1&2 Antibody & p24 Ag Nonreactive (Nonreactive)
[2018-10-30] MEDS ORDERED: Potassium Phosphate 44 MEQ in 0.9 % Sodium Chloride 250 ML IVPB ONE (08:09)
--- NOTE | 2018-10-30 08:09 | Internal Med Progress Note ---
Hospitalist Progress Note - Encounter Date of Encounter: 10/30/18 Time of Encounter: 12:00 - Subjective Interval History: Came in for right hand cellulitis and abscess s/p incision and drainage. No acute events overnight - Exam Vitals: Temp Pulse Resp BP Pulse Ox 98.3 F 76 16 129/77 99 10/30/18 06:58 10/30/18 06:58 10/30/18 06:58 10/30/18 06:58 10/30/18 06:58 Exam: General appearance: Present: A&O X 3, no acute distress Head exam: Present: normocephalic Respiratory exam: Present: CTAB. Absent: accessory muscle use, rales, rhonchi, wheezes Cardiovascular exam: Present: RRR, +S1, +S2. Absent: diastolic murmur, gallop, rubs, systolic murmur GI/Abdominal exam: Soft, NT, ND, +BS Extremities exam:Right hand dressing in place Neurological exam: Present: alert, oriented X3, no focal deficits. Absent: altered - Assessment and Plan (1) Sepsis Current Visit: Yes Status: Acute Assessment and Plan: Pt comes in with right hand abscess and cellulitis s/p workplace injury with metal puncture to the hand Had fever,, leukocytosis and abscess to the right hand. Underwent irrigation and debridement on 10/29 Continue ondaptomycin, cefepime and metronidazole ID following. Follow up blood cultures. Duration of treatment depends on cultures and clinical picture (2) Abscess of right hand Current Visit: Yes Status: Acute Assessment and Plan: See #1. On antibiotics (3) Cellulitis of right hand Current Visit: Yes Status: Acute Assessment and Plan: Improving on antibiotics (4) DVT prophylaxis Current Visit: Yes Status: Acute Assessment and Plan: Heparin sc - Time Spent with Patient Total time spent is greater than 50% in coordination of care (as documented) at patient's floor/unit and/or counseling patient: Internal Medicine: Result - Labs CBC & Chem 7: 10/30/18 05:11 10/30/18 05:11 Labs: Short CBC 10/29/18 10/30/18 Range/Units 11:31 05:11 WBC 21.8 H 15.6 H (4.3-11.1) K/mcL Hgb 13.0 12.3 (11.5-15.4) g/dL Hct 38.8 37.0 (35.3-44.9) % Plt Count 177 170 (140-400) K/mcL Neutrophils # 18.8 H 12.0 H (1.6-8.9) K/mcL BMP 10/29/18 10/30/18 11:31 05:11 Sodium 138 135 L Potassium 4.0 3.8 Chloride 111 H 108 H Carbon Dioxide 20 L 22 L BUN 12 9 Creatinine 0.81 0.74 Glucose 123 H 97 Calcium 8.4 L 8.6 Consult Discharge Plan - Plan Referrals: NONE,PCP [Primary Care Provider] - (1) Sepsis Qualifiers: Sepsis type: sepsis due to unspecified organism Qualified Code(s): A41.9 - Sepsis, unspecified organism
[2018-10-30] MEDS: Nicotine 21 MG PATCH.TD24 TD SCH (10:16)
[2018-10-30] MEDS: *HR* OxyCODONE Immed Rel 5 MG TABLET PO PRN ×3 (10:23→22:54)
--- NOTE | 2018-10-30 10:46 | Infectious Disease Progress No ---
ID Progress Note Date of Encounter: 10/30/18 Time of Encounter: 09:55 - Subjective Subjective: Patient seen and examined. No acute events overnight. Patient complains of pain in the right hand surgical site. Denies fevers, chills, rigors. Denies chest pain, shortness of breath, but does report a chronic cough that is at baseline. Denies nausea, vomiting, diarrhea, or constipation. States overall her appetite is not very good. Denies abdominal pain or urinary complaints. Denies oral thrush or skin rashes. - Objective CBC & Chem 7: 10/31/18 03:45 10/31/18 03:45 - Exam Vitals: Temp Pulse Resp BP Pulse Ox 98.3 F 76 16 129/77 99 10/30/18 06:58 10/30/18 06:58 10/30/18 06:58 10/30/18 06:58 10/30/18 06:58 Exam: Head: Atraumatic, normal inspection, normocephalic. Eye: EOMI, PERRLA, no scleral icterus noted. ENT: Mucous membranes moist. No odontogenic infection noted. Neck: Normal inspection, no meningismus. Respiratory: Clear to auscultation. No rales, respiratory distress, rhonchi, or wheezes noted. Cardiovascular: Regular rate and rhythm, S1 and S2 audible. No murmurs, rubs, or gallops. GI: Soft, nondistended, normal bowel sounds. Extremities: Dressing noted to the right upper extremity with dressing clean, dry, and intact. Positive motor and sensation to the distal extremity. Capillary refill is brisk. Mild edema noted to the fingers. Back: Normal inspection. No vertebral tenderness noted. Neurological: Alert, oriented 3, no focal deficits. Psychiatric: normal affect, normal mood. Skin: Dry, intact, warm. Normal color. No rashes. - Assessment and Plan (1) Sepsis Current Visit: Yes Status: Acute The patient had 3 sepsis criteria on admission. Likely secondary to right hand cellulitis and abscess. Improved. Afebrile. Tachycardia resolved. WBC trending down. Blood cultures drawn 10/28/18 are no growth to date 2 sets. Qualifiers: Sepsis type: sepsis due to unspecified organism Qualified Code(s): A41.9 - Sepsis, unspecified organism SNOMED Code(s): 64007372 (2) Abscess of right hand Current Visit: Yes Status: Acute Location: Right hand. Causative organism: GAS. Etiology: Unclear. The patient does report having a cut to her hand recently. CT of the right upper extremity 10/29/18 showed soft tissue edema and inflammation along the dorsal aspect of the hand without fluid collection. 10/29/2018 status post incision, drainage, irrigation, debridement of right hand by Dr. Causey. Intra-Op with copious amount of purulence. Cultures sent and are pending. Discussed with Dr. Causey. Currently on IV daptomycin and cefepime. SNOMED Code(s): 46144155193900068 (3) Cellulitis of right hand Current Visit: Yes Status: Acute SNOMED Code(s): 81975915 (4) Allergy to multiple antibiotics Current Visit: Yes Status: Acute Cipro, doxycycline, Bactrim, sulfa listed. Does not recall the type of allergic reaction that she had. Vancomycin - swelling of the tongue. SNOMED Code(s): 929600452449965 (5) Hepatitis C Current Visit: Yes Status: Acute Dx in 03/2016 Never treated. Secondary to history of IVDU. HIV non-reactive. Hep B immune. Qualifiers: Viral hepatitis chronicity: chronic Hepatic coma status: without hepatic coma Qualified Code(s): B18.2 - Chronic viral hepatitis C SNOMED Code(s): 09574348 (6) Depressive disorder Current Visit: No Status: Acute SNOMED Code(s): 58532915 (7) Anxiety disorder Current Visit: No Status: Acute Qualifiers: Anxiety disorder type: unspecified anxiety disorder Qualified Code(s): F41.9 - Anxiety disorder, unspecified SNOMED Code(s): 378617738 - Recommendations Recommendations: Await intraoperative cultures to finalize. Await blood cultures to finalize. Wound care and activity per the ortho-hand team. Discontinue cefepime. Start clindamycin 600mg IV Q8H. Continue daptomycin 6 mg/kg IV daily (baseline CK level 32). Start probiotics. Duration treatment depends on the clinical picture. Monitor renal function and CK level and dose adjust antibiotics. Consult Discharge Plan - Plan Referrals: NONE,PCP [Primary Care Provider] - - Attending Attestation I have personally performed a face to face evaluation on this patient. I have reviewed and agree with the care plan. History and Exam by me shows: Assessment and plan: Sepsis Abscess of the right hand causative organism group A streptococcus status post I&D 10/29/2018 Allergies to multiple antibiotics Recommendations Continue daptomycin start Clindamycin DC cefepime Await cultures to finalize start Probiotics Hopefully we can DC the patient on oral antibiotics
[2018-10-30 11:44] LABS: C-Reactive Protein > 300 mg/L (Less than 10)
[2018-10-30] MEDS ORDERED: Gabapentin 300 MG CAPSULE PO SCH (15:00)
[2018-10-30] MEDS: DAPTOmycin 500 MG in 0.9 % Sodium Chloride 100 ML IVPB SCH (18:05)
[2018-10-30] MEDS: Lactobacillus 1 EACH CAP.SPRINK PO SCH (18:06)
--- NOTE | 2018-10-30 19:05 | Orthopedics Progress Note ---
Date of Encounter: 10/30/18 Time of Encounter: 19:02 - Assessment and Plan (1) Abscess of hand Current Visit: Yes Status: Acute Subjective Interval history: S: Resting in bed comfortably Continued to improve this AM, but has stabilized this afternoon Expected postoperative pain O: Afebrile on the vital signs are stable Right dorsal hand wound evaluated. [place] drain is pulled No significant change in the swelling and redness No purulence Grossly flexes and extends digits with limitation due to pain and swelling The fingertips are all grossly sensate and well-perfused, and the radial artery pulse is 2+. Cultures showing Group A strep WBC continues to improve A: Post I&D of the right dorsal wrist P: Continue local wound care Elevation ID on board for Abx Motion exercises to reduce the risk of stiffness. No plans for further I and D if she continues to improve. If fails to improve, then possible 2nd look I ad D. Objective Vital signs: Vital Signs Temp Pulse Resp BP Pulse Ox 10/30/18 15:38 99.1 F 91 16 138/86 98 10/30/18 11:19 97.8 F 83 16 145/89 100 10/30/18 06:58 98.3 F 76 16 129/77 99 10/30/18 04:24 98.6 F 84 16 125/82 97 10/29/18 23:48 98.8 F 92 16 131/85 95 10/29/18 20:17 99.0 F 87 15 128/80 99 Intake and Output 10/30/18 10/30/18 10/30/18 07:59 15:59 23:59 Intake Total 440 / 1050 610 / 1050 Output Total 900 / 2300 1400 / 2300 0 / 2300 Balance -460 / -1250 -790 / -1250 0 / -1250 Intake: IV Fluids 200 / 210 10 / 210 Maxipime 2,000 MG In 0.9 % 100 / 100 Sodium Chloride (Mini-Bag +) 100 ML @ 200 mls/hr IVPB Q12HR [facility] Rx#:[id number] Flagyl Premix 500 MG/100 ML 500 100 / 110 10 / 110 mg In 100 ml @ 100 mls/hr IVPB Q8HR [facility] Rx#:[id number] Oral 240 / 840 600 / 840 Output: Urine 900 / 2300 1400 / 2300 Wound Drainage 0 / 0 0 / 0 Right Hand 0 / 0 0 / 0 Other: Meal Breakfast Percent of Meal Consumed 100% # Voids 1 # Bowel Movements 0 Weight 82.5 kg Patient Weight 10/30/18 23:59 Weight 82.5 kg - Labs CBC & BMP: 10/30/18 05:11 10/30/18 05:11 Labs: Abnormal lab results WBC 15.6 K/mcL (4.3-11.1) H 10/30/18 05:11 RBC 3.58 M/mcL (3.82-4.97) L 10/30/18 05:11 MCV 103.4 fL (83.0-100.0) H 10/30/18 05:11 MCH 34.4 pg (28.0-33.3) H 10/30/18 05:11 30.0 % (0-4) H 10/29/18 11:31 4.0 % (0) H 10/29/18 11:31 12.0 K/mcL (1.6-8.9) H 10/30/18 05:11 0.4 K/mcL (0.0-0.2) H 10/29/18 11:31 Present (Not Present) A 10/29/18 11:31 ESR 35 mm/hr (0-15) H 10/30/18 05:11 Sodium 135 mEq/L (136-145) L 10/30/18 05:11 Chloride 108 mEq/L (98-107) H 10/30/18 05:11 Carbon Dioxide 22 mEq/L (23-29) L 10/30/18 05:11 Glucose 123 mg/dL (70-105) H 10/29/18 11:31 279 (280-300) L 10/30/18 05:11 Calcium 8.4 mg/dL (8.6-10.3) L 10/29/18 11:31 Phosphorus 2.1 mg/dL (2.7-4.5) L 10/30/18 05:11 > 300 mg/L (Less than 10) H 10/30/18 05:11 U Marijuana (THC) Screen Positive ng/mL (Cutoff = 50) H 10/29/18 20:55 Consult Discharge Plan - Plan Referrals: NONE,PCP [Primary Care Provider] -
[2018-10-30] MEDS: Gabapentin 300 MG CAPSULE PO SCH (20:48)
[2018-10-30] MEDS ORDERED: Mirtazapine 15 MG TABLET PO SCH (21:00)
[2018-10-31] MEDS: Acetaminophen 325 MG TABLET PO PRN (01:50)
[2018-10-31] MEDS ORDERED: Artificial Tears SOLN 15 ML BOTTLE BOTH EYES PRN ×2 (02:25→18:46)
[2018-10-31 03:58] LABS: Basophils % 0.3 %; Eosinophils # 0.2 K/mcL (0.0-0.6); Eosinophils % 1.2 %; Hematocrit 38.1 % (35.3-44.9); Hemoglobin 12.7 g/dL (11.5-15.4); Immature Granulocytes % 0.4 % (0-4); Lymphocytes # 3.5 K/mcL (0.6-4.6); Lymphocytes % 25.7 %; Mean Corpuscular HGB Conc 33.3 g/dL (31.6-35.5); Mean Corpuscular Hemoglobin 33.7 pg (28.0-33.3); Mean Corpuscular Volume 101.1 fL (83.0-100.0); Mean Platelet Volume 9.8 fL (9.4-12.4); Monocytes # 0.7 K/mcL (0.0-1.3); Monocytes % 5.3 %; Platelet Count 204 K/mcL (140-400); Red Blood Count 3.77 M/mcL (3.82-4.97); Red Cell Distribution Width 12.6 % (11.5-14.5); Segmented Neutrophils % 67.1 %
[2018-10-31 05:31] LABS: BUN/Creatinine Ratio 12 (6-26); Blood Urea Nitrogen 11 mg/dL (6-20); Calcium 8.9 mg/dL (8.6-10.3); Carbon Dioxide 19 mEq/L (23-29); Chloride 109 mEq/L (98-107); Glucose 85 mg/dL (70-105); Magnesium 1.6 mg/dL (1.6-2.6); Osmolality,Calculated 283 (280-300); Phosphorous 4.2 mg/dL (2.7-4.5); Potassium 3.5 mEq/L (3.5-5.1); Sodium 137 mEq/L (136-145); eGFR For Non-African Americans > 60 (> 60)
[2018-10-31] MEDS: *HR* Heparin 5,000 UNIT/ML VIAL SQ SCH ×2 (06:22→20:07)
--- NOTE | 2018-10-31 07:19 | Orthopedics Progress Note ---
Date of Encounter: 10/31/18 Time of Encounter: 07:17 - Assessment and Plan (1) Abscess of hand Current Visit: Yes Status: Acute Subjective Interval history: S: Resting in bed comfortably Expected postoperative pain O: Febrile overnight Right dorsal hand wound evaluated. Subtle improvement in the swelling and redness No purulence Grossly flexes and extends digits with limitation due to pain and swelling The fingertips are all grossly sensate and well-perfused, and the radial artery pulse is 2+. Cultures showing Group A strep WBC improved slightly CRP significantly elevated A: Post I&D of the right dorsal wrist P: Given the significantly elevated CRP and fevers overnight my recommendation is repeat incision, drainage, irrigation, and debridement to evaluate for any further purulence. Continue nothing by mouth status Plan on operative exploration later today. Objective Vital signs: Vital Signs Temp Pulse Resp BP Pulse Ox 10/31/18 03:10 100.0 F H 95 16 154/98 95 10/31/18 02:59 99.8 F H 10/31/18 01:49 101.3 F H 103 18 143/91 96 10/30/18 20:57 99 10/30/18 19:04 99.9 F H 100 15 166/99 98 10/30/18 15:38 99.1 F 91 16 138/86 98 10/30/18 11:19 97.8 F 83 16 145/89 100 Intake and Output 10/30/18 10/30/18 10/31/18 15:59 23:59 07:59 Intake Total 610 / 1410 360 / 1410 0 / 0 Output Total 1400 / 2300 0 / 2300 900 / 900 Balance -790 / -890 360 / -890 -900 / -900 Intake: IV Fluids 10 / 570 360 / 570 Cubicin 500 MG In 0.9 % Sodium 100 / 100 Chloride 100 ML @ 200 mls/hr IVPB Q24H [facility] Rx#:[id number] Flagyl Premix 500 MG/100 ML 500 10 / 110 mg In 100 ml @ 100 mls/hr IVPB Q8HR [facility] Rx#:[id number] Potassium Phosphate 44 MEQ In 0 260 / 260 .9 % Sodium Chloride 250 ML @ 57.778 mls/hr IVPB ONCE ONE Rx# :[id number] Oral 600 / 840 0 / 840 0 / 0 Output: Urine 1400 / 2300 0 / 2300 900 / 900 Wound Drainage 0 / 0 0 / 0 Right Hand 0 / 0 0 / 0 Other: Meal Breakfast Percent of Meal Consumed 100% # Bowel Movements 0 Weight 82.6 kg Blood Glucose* 107 Patient Weight 10/31/18 23:59 Weight 82.6 kg - Labs CBC & BMP: 10/31/18 03:45 10/31/18 03:45 Labs: Abnormal lab results WBC 13.4 K/mcL (4.3-11.1) H 10/31/18 03:45 RBC 3.77 M/mcL (3.82-4.97) L 10/31/18 03:45 MCV 101.1 fL (83.0-100.0) H 10/31/18 03:45 MCH 33.7 pg (28.0-33.3) H 10/31/18 03:45 30.0 % (0-4) H 10/29/18 11:31 4.0 % (0) H 10/29/18 11:31 9.0 K/mcL (1.6-8.9) H 10/31/18 03:45 0.4 K/mcL (0.0-0.2) H 10/29/18 11:31 Present (Not Present) A 10/29/18 11:31 ESR 65 mm/hr (0-15) H 10/31/18 03:45 Sodium 135 mEq/L (136-145) L 10/30/18 05:11 Chloride 109 mEq/L (98-107) H 10/31/18 03:45 Carbon Dioxide 19 mEq/L (23-29) L 10/31/18 03:45 Glucose 123 mg/dL (70-105) H 10/29/18 11:31 279 (280-300) L 10/30/18 05:11 Calcium 8.4 mg/dL (8.6-10.3) L 10/29/18 11:31 Phosphorus 2.1 mg/dL (2.7-4.5) L 10/30/18 05:11 > 300 mg/L (Less than 10) H 10/30/18 05:11 U Marijuana (THC) Screen Positive ng/mL (Cutoff = 50) H 10/29/18 20:55 Consult Discharge Plan - Plan Referrals: NONE,PCP [Primary Care Provider] -
[2018-10-31] MEDS ORDERED: Clindamycin 900 MG/50 ML 900 MG/50 ML IV.SOLN IVPB ONE (07:48)
[2018-10-31] MEDS: Lactobacillus 1 EACH CAP.SPRINK PO SCH (08:12)
[2018-10-31] MEDS: *HR* OxyCODONE Immed Rel 5 MG TABLET PO PRN ×3 (08:12→22:28)
[2018-10-31] MEDS: Gabapentin 300 MG CAPSULE PO SCH ×2 (08:12→20:10)
[2018-10-31] MEDS: Nicotine 21 MG PATCH.TD24 TD SCH (08:13)
[2018-10-31] MEDS ORDERED: amLODIPine 5 MG TABLET PO SCH (09:00)
[2018-10-31] MEDS: DAPTOmycin 500 MG in 0.9 % Sodium Chloride 100 ML IVPB SCH (09:29)
--- NOTE | 2018-10-31 11:55 | Infectious Disease Progress No ---
ID Progress Note Date of Encounter: 10/31/18 Time of Encounter: 10:15 - Subjective Subjective: Patient seen and examined. Overnight events noted. Patient became febrile with associated chills and shivers and tachycardia. Patient complains of pain in the right hand surgical site, but states it is actually feeling better today. Denies chest pain, shortness of breath, but does report a chronic cough that is at baseline. Denies nausea, vomiting, diarrhea, or constipation. States overall her appetite is much better and she is very irritated that she is nothing by mouth until surgery later this evening. Denies abdominal pain or urinary complaints. Denies oral thrush or skin rashes. - Objective CBC & Chem 7: 11/01/18 05:03 11/01/18 04:00 - Exam Vitals: Temp Pulse Resp BP Pulse Ox 99.1 F 84 16 141/89 98 10/31/18 07:04 10/31/18 07:04 10/31/18 07:04 10/31/18 07:04 10/31/18 07:04 Exam: Head: Atraumatic, normal inspection, normocephalic. Eye: EOMI, PERRLA, no scleral icterus noted. ENT: Mucous membranes moist. No odontogenic infection noted. Neck: Normal inspection, no meningismus. Respiratory: Clear to auscultation. No rales, respiratory distress, rhonchi, or wheezes noted. Cardiovascular: Regular rate and rhythm, S1 and S2 audible. No murmurs, rubs, or gallops. GI: Soft, nondistended, normal bowel sounds. Extremities: Dressing noted to the right upper extremity with dressing clean, dry, and intact. Positive motor and sensation to the distal extremity. Capillary refill is brisk. Mild edema noted to the fingers. Back: Normal inspection. No vertebral tenderness noted. Neurological: Alert, oriented 3, no focal deficits. Psychiatric: normal affect, normal mood. Skin: Dry, intact, warm. Normal color. No rashes. - Assessment and Plan (1) Sepsis Current Visit: Yes Status: Ruled-out The patient had 3 sepsis criteria on admission. Likely secondary to right hand cellulitis and abscess. Improved. Afebrile. Tachycardia resolved. WBC trending down. Blood cultures drawn 10/28/18 are no growth to date 2 sets. Qualifiers: Sepsis type: sepsis due to unspecified organism Qualified Code(s): A41.9 - Sepsis, unspecified organism SNOMED Code(s): 85852304 (2) Abscess of right hand Current Visit: Yes Status: Acute Location: Right hand. Causative organism: GAS. Etiology: Unclear. The patient does report having a cut to her hand recently. CT of the right upper extremity 10/29/18 showed soft tissue edema and inflammation along the dorsal aspect of the hand without fluid collection. 10/29/2018 status post incision, drainage, irrigation, debridement of right hand by Dr. Causey. Intra-Op with copious amount of purulence. Cultures sent and are positive for group A strep. Antibiotics transitioned from cefepime, Flagyl, and daptomycin to Go and Clinda yesterday once cultures resulted positive. Discussed with Dr. Causey. Planning repeat I&D and washout later today since the patient had recurrent fevers overnight. Currently on IV daptomycin and clindamycin. SNOMED Code(s): 51131974379849255 (3) Cellulitis of right hand Current Visit: Yes Status: Acute SNOMED Code(s): 45391100 (4) Allergy to multiple antibiotics Current Visit: Yes Status: Acute Cipro, doxycycline, Bactrim, sulfa listed. Does not recall the type of allergic reaction that she had. Vancomycin - swelling of the tongue. SNOMED Code(s): 987090840890789 (5) Hepatitis C Current Visit: Yes Status: Chronic Dx in 03/2016 Never treated. Secondary to history of IVDU. HIV non-reactive. Hep B immune. Qualifiers: Viral hepatitis chronicity: chronic Hepatic coma status: without hepatic coma Qualified Code(s): B18.2 - Chronic viral hepatitis C SNOMED Code(s): 88740782 (6) Depressive disorder Current Visit: No Status: Chronic SNOMED Code(s): 81042297 (7) Anxiety disorder Current Visit: No Status: Chronic Qualifiers: Anxiety disorder type: unspecified anxiety disorder Qualified Code(s): F41.9 - Anxiety disorder, unspecified SNOMED Code(s): 512505414 - Recommendations Recommendations: Await intraoperative cultures to finalize. Await blood cultures to finalize. Await Intra-Op findings a repeat washout. Wound care and activity per the ortho-hand team. Continue clindamycin 900mg IV Q8H. Apparently, the patient missed a dose of IV clindamycin overnight and was not given until this morning due to a pharmacy error. Continue daptomycin 6 mg/kg IV daily (baseline CK level 32). Continue probiotics. Duration treatment depends on the clinical picture. Monitor renal function and CK level and dose adjust antibiotics. Consult Discharge Plan - Plan Referrals: NONE,PCP [Primary Care Provider] - - Attending Attestation I have personally performed a face to face evaluation on this patient. I have reviewed and agree with the care plan. History and Exam by me shows: Assessment and plan: 1.Sepsis 2.Abscess of the right hand causative organism group A streptococcus status post I&D 10/29/2018 3.Allergies to multiple antibiotics Recommendations: Patient had a low-grade fever last night. Patient's rhythm daptomycin. Clindamycin was not started on the right time. Did speak with the Dr. Padilla is taking the patient back to surgery today. He feels that the infection was not aggressive and hopefully we can treat with oral antibiotics as an outpatient pending what we find intraoperatively tonight.
[2018-10-31] MEDS: traMADol 50 MG TABLET PO PRN (12:26)
--- NOTE | 2018-10-31 14:29 | Anesthesia Evaluation PreOp ---
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 (substance abuse disorder includes history of cocaine, opiates, marijuana, methamphetamine, IVDU, depression/anxiety, fibromyalgia) Other Medical History: Hepatic (Hep C) Anesthesia History: No Prior Anesthetic Complications, Past Anesthesia (cholecystectomy, orthopedic, I&D right hand 2 days ago) Alcohol Use: occasionally Drug use: marijuana Medications and Allergies Acetaminophen [Tylenol] 650 mg PO Q6HR PRN #20 tablet 04/07/16 [Rx] Gabapentin [Neurontin] 900 mg PO TID 10/30/18 [History] Mirtazapine [Remeron] 15 mg PO HS 10/30/18 [History] amLODIPine [Norvasc] 5 mg PO DAILY 10/30/18 [History] Allergy/AdvReac Type Severity Reaction Status Date / Time trimethoprim [From Bactrim] Allergy Severe Difficulty Verified 10/30/18 13:33 Breathing ciprofloxacin [From Cipro] Allergy Hives Verified 10/02/18 13:53 doxycycline Allergy Hives Verified 10/02/18 13:53 Sulfa (Sulfonamide Allergy Hives Verified 10/02/18 13:53 Antibiotics) sulfamethoxazole Allergy Hives Verified 10/02/18 13:53 [From Bactrim] vancomycin Allergy Difficulty Verified 10/30/18 13:33 Breathing - Meds/Allergy Pre-op Review Medications Reviewed: Yes Allergies Reviewed: Yes Beta Blockers on Current Med List: No Anesthesia Results - Labs 10/31/18 03:45 10/31/18 03:45 Laboratory Tests 04/04/16 10/29/18 12:29 00:28 Serum , Qual Negative Hepatitis C Ab Screen Reactive H - Imaging EKG: report reviewed, image reviewed (ST) Anesthesia Exam Last Vital Signs Temp 98.5 F 10/31/18 12:15 Pulse 83 10/31/18 12:15 Resp 16 10/31/18 12:15 BP 154/91 10/31/18 12:15 Pulse Ox 97 10/31/18 12:15 Weight: 83 kg - HEENT Pupil (Motor): Pupils equal, EOMI Mallampati: II Teeth: Edentulous - 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
--- NOTE | 2018-10-31 14:38 | Internal Med Progress Note ---
Hospitalist Progress Note - Encounter Date of Encounter: 10/31/18 Time of Encounter: 14:36 - Subjective Interval History: I have seen and evaluate the patient at bedside. she reports still having some pain on her right hand but improved. patient is able to make a fist. denies shortness of breath, nausea or vomiting. denies abdominal pain or loose stool. - Exam Vitals: Temp Pulse Resp BP Pulse Ox 98.5 F 83 16 154/91 97 10/31/18 12:15 10/31/18 12:15 10/31/18 12:15 10/31/18 12:15 10/31/18 12:15 Exam: Vitals: Reviewed General: Alert and oriented x4. In mild distress due to right hand pain. Cardiovascular: RRR, normal S1 & S2, no rubs, murmurs or gallops. Lungs: CTA b/l, no wheezes or crackles. Abdomen: Obese, soft, non-tender, no rigidity. Extremities: mild erythema and edema of the right hand. Neurological: Normal cognition and motor skills. Rest of the physical exam is non contributory - Assessment and Plan (1) Abscess of right hand Current Visit: Yes Status: Acute Assessment and Plan: patient scheduled to have repeat incision, drainage, irrigation, and debridement to evaluate for any further purulence, by ortho team. on clindamycin and daptomycin per ID recommendations on Oxycodone 10mg/PO Q6HR PRN for pain control. ID recommendations appreciated would culture: strep group A. will discuss with ID about switching the patient to a penicillin. (2) Cellulitis of right hand Current Visit: Yes Status: Acute Assessment and Plan: plan of care as above. (3) Sepsis Current Visit: Yes Status: Ruled-out (4) Hepatitis C Current Visit: Yes Status: Chronic (5) Anxiety disorder Current Visit: No Status: Chronic (6) Depressive disorder Current Visit: No Status: Chronic Assessment and Plan: patient is on mirtazapine 15mg/PO HS (7) Hypertension Current Visit: No Status: Chronic Assessment and Plan: Blood pressure is well controlled on amlodipine 5mg/PO daily. DVT Prophylaxis: On Heparin subQ - Summary of Assessment and Plan Summary of Assessment and Plan: patient to remain in the hospital due to right hand abscess. patient scheduled to be taken to the OR today. - Time Spent with Patient Total time spent is greater than 50% in coordination of care (as documented) at patient's floor/unit and/or counseling patient: Greater than 35 minutes (40) Plan of Care Discussed with: patient (and the nurse.) Internal Medicine: Result - Labs CBC & Chem 7: 10/31/18 03:45 10/31/18 03:45 Labs: Short CBC 10/31/18 Range/Units 03:45 WBC 13.4 H (4.3-11.1) K/mcL Hgb 12.7 (11.5-15.4) g/dL Hct 38.1 (35.3-44.9) % Plt Count 204 (140-400) K/mcL Neutrophils # 9.0 H (1.6-8.9) K/mcL BMP 10/31/18 03:45 Sodium 137 Potassium 3.5 Chloride 109 H Carbon Dioxide 19 L BUN 11 Creatinine 0.94 Glucose 85 Calcium 8.9 Consult Discharge Plan - Plan Referrals: NONE,PCP [Primary Care Provider] - (3) Sepsis Qualifiers: Sepsis type: sepsis due to unspecified organism Qualified Code(s): A41.9 - Sepsis, unspecified organism (4) Hepatitis C Qualifiers: Viral hepatitis chronicity: chronic Hepatic coma status: without hepatic coma Qualified Code(s): B18.2 - Chronic viral hepatitis C (5) Anxiety disorder Qualifiers: Anxiety disorder type: unspecified anxiety disorder Qualified Code(s): F41.9 - Anxiety disorder, unspecified (7) Hypertension Qualifiers: Hypertension type: essential hypertension Qualified Code(s): I10 - Essential (primary) hypertension
[2018-10-31] MEDS ORDERED: *HR* Propofol 200 MG/20 ML VIAL IVP ONE (14:57)
[2018-10-31] MEDS ORDERED: Ondansetron 4 MG/2 ML VIAL ONE (14:58)
[2018-10-31] MEDS ORDERED: *HR* Succinylcholine 200 MG/10 ML VIAL IVP ONE (14:58)
[2018-10-31] MEDS ORDERED: Gabapentin 300 MG CAPSULE PO SCH ×2 (15:00)
[2018-10-31] MEDS ORDERED: Clindamycin 900 MG/50 ML 900 MG/50 ML IV.SOLN IVPB SCH (16:00)
[2018-10-31] MEDS ORDERED: *HR* FentaNYL (PF) 100 MCG/2 ML VIAL ONE (16:50)
[2018-10-31] MEDS ORDERED: *HR* Midazolam HCl 2 MG/2 ML VIAL ONE (16:50)
[2018-10-31] MEDS ORDERED: Bupivacaine/EPI 1:200k 0.5%PF 10 ML VIAL ONE (16:57)
[2018-10-31] MEDS ORDERED: Albuterol 2.5 MG/3 ML NEBULIZER ONE (17:04)
[2018-10-31] MEDS ORDERED: *HR* OxyCODONE Immed Rel 5 MG TABLET PO PRN (17:09)
[2018-10-31] MEDS ORDERED: *HR* Promethazine 25 MG/ML VIAL IVP PRN ×2 (17:09→18:46)
--- NOTE | 2018-10-31 17:57 | Orthopedic Operative Note ---
Date of procedure: 10/31/18 Procedure: OPERATIVE REPORT SURGEON: Ervin Ricks MD PREOPERATIVE DIAGNOSIS: Right dorsal hand infection POSTOPERATIVE DIAGNOSIS: Right dorsal hand infection PROCEDURE: Second look debridement and irrigation of the right hand ANESTHESIA: Gen. anesthesia SPECIMENS: Swabs taken for culture PREOPERATIVE NOTE The surgical plan was reviewed with the patient. The risks, benefits, alternatives, and potential complications of this procedure were discussed with the patient including injury to veins, arteries, nerves, tendons, ligaments, and bone. Also discussed were the risks of infection, bleeding, pain, blood clots, the possible need for a blood transfusion, the possible need for further procedures, heart attack, stroke, and . Additional risks include the need for further debridements. All of this was explained in simple terms, and the patient verbalized understanding and wished to proceed. Consent was given to proceed with surgery. PROCEDURE: The patient was seen in the preoperative holding area where the identify and the consent were confirmed. The right dorsal hand was marked. Final questions were answered. The patient was brought back to the operating room and placed supine on the operating room table. A huddle was performed with the patient and all vital surgical team members confirming patient identity, the correct procedure, and the correct operative site. Gen. anesthesia was administered. The operative extremity was prepped and draped in the usual sterile fashion. A surgical time out was performed immediately preceding the incision with all personnel in the operating room to confirm patient identity, the correct operative site and extremity, correct radiographic studies, availability of appropriate surgical equipment, and agreement on the planned procedure. Revealed incision was opened and the wound spread apart. The wound bed was evaluated and there is noted to be no new purulence and no necrotic tissue. A total of 6 L of saline was flushed through the wound through a combination of cysto tubing and pulse lavage. No further abscess was identified. The wound was loosely closed over a quarter-inch [place] drain. A sterile, soft dressing was applied. The instrument, sponge, and needle counts were correct after wound closure. POST OPERATIVE PLAN: Continue IV antibiotics under the direction of IV. Was there an business office assistant present: No Estimated blood loss (cc): 1
--- NOTE | 2018-10-31 18:25 | Anesthesia Evaluation Post Op ---
Date of Encounter: 10/31/18 Time of Encounter: 18:24 - Discharge PostOp Status: Transfer Patient to floor (Patient's vital signs have been reviewed. Patient is stable postoperatively and has adequately recovered from anesthesia. Patient is determined to have stable airway patency and respiratory function including respiratory rate and oxygen saturation. Patient has a stable heart rate, blood pressure and adequate hydration. Patients mental status is acceptable. Patients temperature is appropriate. Pain and nausea are adequately controlled.)
[2018-10-31] MEDS ORDERED: Acetaminophen 325 MG TABLET PO PRN (18:46)
[2018-10-31] MEDS ORDERED: Naloxone 0.4 MG/ML INJ IVP PRN (18:46)
[2018-10-31] MEDS: Mirtazapine 15 MG TABLET PO SCH (20:10)
[2018-10-31] MEDS ORDERED: Clindamycin 600 MG/50 ML 600 MG/50 ML IV.SOLN IVPB SCH (23:00)
[2018-11-01] MEDS: Clindamycin 900 MG/50 ML 900 MG/50 ML IV.SOLN IVPB SCH ×3 (00:15→16:10)
[2018-11-01] MEDS: *HR* Heparin 5,000 UNIT/ML VIAL SQ SCH ×2 (05:11→17:23)
[2018-11-01] MEDS: traMADol 50 MG TABLET PO PRN ×3 (05:15→22:10)
[2018-11-01 05:32] LABS: Basophils % 0.7 %; Eosinophils # 0.1 K/mcL (0.0-0.6); Eosinophils % 2.1 %; Hemoglobin 12.2 g/dL (11.5-15.4); Immature Granulocytes % 0.3 % (0-4); Lymphocytes # 2.4 K/mcL (0.6-4.6); Lymphocytes % 41.4 %; Mean Corpuscular HGB Conc 33.9 g/dL (31.6-35.5); Mean Corpuscular Hemoglobin 34.4 pg (28.0-33.3); Mean Corpuscular Volume 101.4 fL (83.0-100.0); Mean Platelet Volume 9.9 fL (9.4-12.4); Monocytes # 0.4 K/mcL (0.0-1.3); Neutrophils # 2.8 K/mcL (1.6-8.9); Platelet Count 210 K/mcL (140-400); Red Blood Count 3.55 M/mcL (3.82-4.97); Red Cell Distribution Width 12.5 % (11.5-14.5); Segmented Neutrophils % 48.5 %
[2018-11-01 05:50] LABS: BUN/Creatinine Ratio 11 (6-26); Blood Urea Nitrogen 9 mg/dL (6-20); Calcium 9.1 mg/dL (8.6-10.3); Carbon Dioxide 27 mEq/L (23-29); Chloride 105 mEq/L (98-107); Glucose 109 mg/dL (70-105); Magnesium 1.9 mg/dL (1.6-2.6); Osmolality,Calculated 289 (280-300); Phosphorous 4.9 mg/dL (2.7-4.5); Potassium 3.5 mEq/L (3.5-5.1); Sodium 140 mEq/L (136-145); eGFR For Non-African Americans > 60 (> 60)
--- NOTE | 2018-11-01 08:07 | Orthopedics Progress Note ---
Date of Encounter: 11/01/18 Time of Encounter: 08:04 - Assessment and Plan (1) Abscess of hand Current Visit: Yes Status: Acute Subjective Interval history: S: Resting in bed comfortably Expected postoperative pain O: AFVS Right dorsal hand wound evaluated. Subtle improvement in the swelling and redness [place] drain intact. No purulence Grossly flexes and extends digits with limitation due to pain and swelling The fingertips are all grossly sensate and well-perfused, and the radial artery pulse is 2+. Cultures showing Group A strep WBC improved to normal. A: Post I&D of the right dorsal wrist x 2 P: No significant purulence at the time of the second I&D. Continue antibiotics per the primary team and ID Elevation of the right upper extremity. Panda removal late this afternoon or tomorrow morning depending on the amount of drainage. Objective Vital signs: Vital Signs Temp Pulse Resp BP Pulse Ox 11/01/18 06:42 98.2 F 74 15 134/98 97 11/01/18 04:24 98.6 F 76 16 144/93 99 10/31/18 22:31 99.2 F 93 16 129/84 97 10/31/18 20:18 98.8 F 101 16 141/110 96 10/31/18 19:31 98.4 F 95 18 152/67 96 10/31/18 19:06 98.7 F 92 18 153/104 98 10/31/18 18:30 99.5 F 81 16 178/95 100 10/31/18 18:20 81 14 180/93 99 10/31/18 18:10 86 18 168/89 97 10/31/18 18:00 98.1 F 80 16 168/83 94 10/31/18 16:14 98.4 F 64 16 159/98 96 10/31/18 12:15 98.5 F 83 16 154/91 97 Intake and Output 10/31/18 11/01/18 11/01/18 23:59 07:59 15:59 Intake Total 50 / 200 170 / 170 Output Total 405 / 2105 1450 / 1450 Balance -355 / -1905 -1280 / -1280 Intake: IV Fluids 50 / 200 50 / 50 Cleocin Premix 900 MG/50 ML 900 50 / 50 50 / 50 mg In 50 ml @ 50 mls/hr IVPB Q8HR [facility] Rx#:[id number] Oral 120 / 120 Output: Urine 400 / 2100 1450 / 1450 Estimated Blood Loss 5 / 5 Other: # Voids 3 Weight 83.4 kg Patient Weight 11/01/18 23:59 Weight 83.4 kg - Labs CBC & BMP: 11/01/18 05:03 11/01/18 04:00 Labs: Abnormal lab results WBC 13.4 K/mcL (4.3-11.1) H 10/31/18 03:45 RBC 3.55 M/mcL (3.82-4.97) L 11/01/18 05:03 MCV 101.4 fL (83.0-100.0) H 11/01/18 05:03 MCH 34.4 pg (28.0-33.3) H 11/01/18 05:03 30.0 % (0-4) H 10/29/18 11:31 4.0 % (0) H 10/29/18 11:31 9.0 K/mcL (1.6-8.9) H 10/31/18 03:45 0.4 K/mcL (0.0-0.2) H 10/29/18 11:31 Present (Not Present) A 10/29/18 11:31 ESR 65 mm/hr (0-15) H 10/31/18 03:45 Sodium 135 mEq/L (136-145) L 10/30/18 05:11 Chloride 109 mEq/L (98-107) H 10/31/18 03:45 Carbon Dioxide 19 mEq/L (23-29) L 10/31/18 03:45 Glucose 109 mg/dL (70-105) H 11/01/18 04:00 279 (280-300) L 10/30/18 05:11 Calcium 8.4 mg/dL (8.6-10.3) L 10/29/18 11:31 Phosphorus 4.9 mg/dL (2.7-4.5) H 11/01/18 04:00 228 mg/L (Less than 10) H 10/31/18 03:45 U Marijuana (THC) Screen Positive ng/mL (Cutoff = 50) H 10/29/18 20:55 Consult Discharge Plan - Plan Referrals: NONE,PCP [Primary Care Provider] -
[2018-11-01] MEDS: Gabapentin 300 MG CAPSULE PO SCH ×3 (08:50→22:10)
[2018-11-01] MEDS: *HR* OxyCODONE Immed Rel 5 MG TABLET PO PRN ×3 (08:50→23:42)
[2018-11-01] MEDS: amLODIPine 5 MG TABLET PO SCH (08:50)
[2018-11-01] MEDS: Lactobacillus 1 EACH CAP.SPRINK PO SCH (08:50)
[2018-11-01] MEDS: Nicotine 21 MG PATCH.TD24 TD SCH (08:51)
[2018-11-01] MEDS ORDERED: DAPTOmycin 500 MG in 0.9 % Sodium Chloride 100 ML IVPB SCH (09:00)
--- NOTE | 2018-11-01 12:16 | Infectious Disease Progress No ---
ID Progress Note Date of Encounter: 11/01/18 Time of Encounter: 10:20 - Subjective Subjective: Patient seen and examined. No acute events noted overnight. Patient complains of pain/stiffness in the right hand surgical site, but states it is actually feeling better today. Denies chest pain, shortness of breath, but does report a chronic cough that is at baseline. Denies nausea, vomiting, diarrhea, or constipation. States overall her appetite is much better. Complains of some upper abdominal pain and bloating. Denies urinary complaints. Denies oral thrush or skin rashes. - Objective CBC & Chem 7: 11/02/18 04:45 11/02/18 04:45 - Exam Vitals: Temp Pulse Resp BP Pulse Ox 97.8 F 76 15 144/101 94 11/01/18 10:37 11/01/18 10:37 11/01/18 10:37 11/01/18 10:37 11/01/18 10:37 Exam: Head: Atraumatic, normal inspection, normocephalic. Eye: EOMI, PERRLA, no scleral icterus noted. ENT: Mucous membranes moist. No odontogenic infection noted. Neck: Normal inspection, no meningismus. Respiratory: Clear to auscultation. No rales, respiratory distress, rhonchi, or wheezes noted. Cardiovascular: Regular rate and rhythm, S1 and S2 audible. No murmurs, rubs, or gallops. GI: Soft, distended, normal bowel sounds. Tenderness noted to the epigastric and RUQ regions. Extremities: Dressing noted to the right upper extremity with dressing clean, dry, and intact. Positive motor and sensation to the distal extremity. Capillary refill is brisk. Mild edema noted to the fingers. Back: Normal inspection. No vertebral tenderness noted. Neurological: Alert, oriented 3, no focal deficits. Psychiatric: normal affect, normal mood. Skin: Dry, intact, warm. Normal color. No rashes. - Assessment and Plan (1) Sepsis Current Visit: Yes Status: Ruled-out The patient had 3 sepsis criteria on admission. Likely secondary to right hand cellulitis and abscess. Improved. Afebrile. Tachycardia resolved. WBC trending normal. Blood cultures drawn 10/28/18 are no growth to date 2 sets. Qualifiers: Sepsis type: sepsis due to unspecified organism Qualified Code(s): A41.9 - Sepsis, unspecified organism SNOMED Code(s): 16949807 (2) Abscess of right hand Current Visit: Yes Status: Resolved Location: Right hand. Causative organism: GAS. Etiology: Unclear. The patient does report having a cut to her hand recently. CT of the right upper extremity 10/29/18 showed soft tissue edema and inflammation along the dorsal aspect of the hand without fluid collection. 10/29/2018 status post incision, drainage, irrigation, debridement of right hand by Dr. Causey. Intra-Op with copious amount of purulence. Cultures sent and are positive for group A strep. Antibiotics transitioned from cefepime, Flagyl, and daptomycin to dapto and Clinda once cultures resulted positive. Status post second look irrigation and debridement 10/31/[address] Causey. Operative note reviewed. No evidence of infection noted. Repeat cultures were obtained and are pending. Currently on IV daptomycin and clindamycin. SNOMED Code(s): 46191721641244366 (3) Cellulitis of right hand Current Visit: Yes Status: Acute SNOMED Code(s): 46602003 (4) Allergy to multiple antibiotics Current Visit: Yes Status: Acute Cipro, doxycycline, Bactrim, sulfa listed. Does not recall the type of allergic reaction that she had. Vancomycin - swelling of the tongue. SNOMED Code(s): 451079486342083 (5) Hepatitis C Current Visit: Yes Status: Chronic Dx in 03/2016 Never treated. Secondary to history of IVDU. HIV non-reactive. Hep B immune. Qualifiers: Viral hepatitis chronicity: chronic Hepatic coma status: without hepatic coma Qualified Code(s): B18.2 - Chronic viral hepatitis C SNOMED Code(s): 52886289 (6) Depressive disorder Current Visit: No Status: Chronic SNOMED Code(s): 68742387 (7) Anxiety disorder Current Visit: No Status: Chronic Qualifiers: Anxiety disorder type: unspecified anxiety disorder Qualified Code(s): F41.9 - Anxiety disorder, unspecified SNOMED Code(s): 216285647 - Recommendations Recommendations: Await intraoperative cultures to finalize. Await blood cultures to finalize. Wound care and activity per the ortho-hand team. Continue clindamycin 900mg IV Q8H. Start PCN 4 million units IV Q4H. Discontinue daptomycin. Continue probiotics. Duration treatment depends on the clinical picture. Can likely transition to PO antibiotics when ready for discharge. Monitor renal function and dose adjust antibiotics. Consult Discharge Plan - Plan Referrals: NONE,PCP [Primary Care Provider] - (Please call [phone], to set up appointment with PCP) Prescriptions: Clindamycin HCl [Cleocin HCl] 300 mg PO TID 10 Days #30 cap Lactobacillus [Culturelle] 2 each PO DAILY 30 Days #30 cap.sprink Penicillin VK 500 mg PO BID 10 Days #20 tablet Tramadol HCl [Ultram] 50 mg PO TID PRN 5 Days #10 tab PRN Reason: Pain - Attending Attestation I have personally performed a face to face evaluation on this patient. I have reviewed and agree with the care plan. History and Exam by me shows: Assessment and plan: 1.Sepsis 2.Abscess of the right hand causative organism group A streptococcus status post I&D 10/29/2018 3.Allergies to multiple antibiotics Recommendations: Doing great post op intra op note reviewed will d/w on oral PCN and clindamycin for 14 days.
--- NOTE | 2018-11-01 14:23 | Internal Med Progress Note ---
Hospitalist Progress Note - Encounter Date of Encounter: 11/01/18 Time of Encounter: 14:21 - Subjective Interval History: I have seen and evaluated the patient at bedside. patient reports today her right hand feels a little more stiff, denies pain. denies loose stool or diarrhea. denies abdominal pain, nausea or vomiting. - Exam Vitals: Temp Pulse Resp BP Pulse Ox 97.8 F 76 15 144/101 94 11/01/18 10:37 11/01/18 10:37 11/01/18 10:37 11/01/18 10:37 11/01/18 10:37 Exam: Vitals: Reviewed General: Alert and oriented x4. In no distress Cardiovascular: RRR, normal S1 & S2, no rubs, murmurs or gallops. Lungs: CTA b/l, no wheezes or crackles. Abdomen: Obese, soft, non-tender, no rigidity. NABS in all 4 quadrants Extremities: erythema also resolved, mild edema of the right hand. Neurological: No focal neurological deficits Rest of the physical exam is non contributory - Assessment and Plan (1) Abscess of right hand Current Visit: Yes Status: Acute Assessment and Plan: Reported pain and stiffness of the right hand Plan patient s/p re-drainage of right hand yesterday. Ortho recommendations appreciated on clindamycin 900mg/IV Q8HRs Started on penicillin G on Oxycodone 10mg/PO Q6HR PRN for pain control. would culture: strep group A. repeat wound culture: pending (2) Cellulitis of right hand Current Visit: Yes Status: Acute Assessment and Plan: plan of care as above. (3) Sepsis Current Visit: Yes Status: Ruled-out (4) Hepatitis C Current Visit: Yes Status: Chronic (5) Anxiety disorder Current Visit: No Status: Chronic (6) Depressive disorder Current Visit: No Status: Chronic Assessment and Plan: Continue mirtazapine 15mg/PO HS (7) Hypertension Current Visit: No Status: Chronic Assessment and Plan: Blood pressure is well controlled on amlodipine 5 mg by mouth daily. DVT Prophylaxis: On heparin subcutaneous. - Summary of Assessment and Plan Summary of Assessment and Plan: Discussed with ID regarding DC planning and recommended to keep patient 1 more day in the hospital for IV antibiotics. - Time Spent with Patient Total time spent is greater than 50% in coordination of care (as documented) at patient's floor/unit and/or counseling patient: Greater than 35 minutes (40) Plan of Care Discussed with: patient (and the nurse.) Internal Medicine: Result - Labs CBC & Chem 7: 11/01/18 05:03 11/01/18 04:00 Labs: Short CBC 11/01/18 Range/Units 05:03 WBC 5.7 D (4.3-11.1) K/mcL Hgb 12.2 (11.5-15.4) g/dL Hct 36.0 (35.3-44.9) % Plt Count 210 (140-400) K/mcL Neutrophils # 2.8 (1.6-8.9) K/mcL BMP 11/01/18 04:00 Sodium 140 Potassium 3.5 Chloride 105 Carbon Dioxide 27 BUN 9 Creatinine 0.82 Glucose 109 H Calcium 9.1 Consult Discharge Plan - Plan Referrals: NONE,PCP [Primary Care Provider] - (3) Sepsis Qualifiers: Sepsis type: sepsis due to unspecified organism Qualified Code(s): A41.9 - Sepsis, unspecified organism (4) Hepatitis C Qualifiers: Viral hepatitis chronicity: chronic Hepatic coma status: without hepatic coma Qualified Code(s): B18.2 - Chronic viral hepatitis C (5) Anxiety disorder Qualifiers: Anxiety disorder type: unspecified anxiety disorder Qualified Code(s): F41.9 - Anxiety disorder, unspecified (7) Hypertension Qualifiers: Hypertension type: essential hypertension Qualified Code(s): I10 - Essential (primary) hypertension
[2018-11-01] MEDS: Penicillin G Potassium 4,000,000 UNIT in 0.9 % Sodium Chloride 100 ML IVPB SCH ×2 (16:10→22:11)
[2018-11-01] MEDS: Mirtazapine 15 MG TABLET PO SCH (22:10)
[2018-11-02] MEDS: Penicillin G Potassium 4,000,000 UNIT in 0.9 % Sodium Chloride 100 ML IVPB SCH ×4 (00:34→12:42)
[2018-11-02] MEDS: Clindamycin 900 MG/50 ML 900 MG/50 ML IV.SOLN IVPB SCH ×2 (00:35→08:12)
[2018-11-02] MEDS: traMADol 50 MG TABLET PO PRN (04:39)
[2018-11-02 05:01] LABS: Basophils % 0.6 %; Eosinophils # 0.2 K/mcL (0.0-0.6); Eosinophils % 2.5 %; Hematocrit 37.5 % (35.3-44.9); Hemoglobin 12.6 g/dL (11.5-15.4); Immature Granulocytes % 0.8 % (0-4); Lymphocytes % 46.3 %; Mean Corpuscular HGB Conc 33.6 g/dL (31.6-35.5); Mean Corpuscular Hemoglobin 33.9 pg (28.0-33.3); Mean Corpuscular Volume 100.8 fL (83.0-100.0); Mean Platelet Volume 9.8 fL (9.4-12.4); Monocytes # 0.5 K/mcL (0.0-1.3); Neutrophils # 2.7 K/mcL (1.6-8.9); Platelet Count 244 K/mcL (140-400); Red Blood Count 3.72 M/mcL (3.82-4.97); Red Cell Distribution Width 12.2 % (11.5-14.5); Segmented Neutrophils % 41.8 %
[2018-11-02 05:15] LABS: BUN/Creatinine Ratio 14 (6-26); Blood Urea Nitrogen 11 mg/dL (6-20); Calcium 9.2 mg/dL (8.6-10.3); Carbon Dioxide 26 mEq/L (23-29); Chloride 105 mEq/L (98-107); Glucose 121 mg/dL (70-105); Magnesium 1.8 mg/dL (1.6-2.6); Osmolality,Calculated 287 (280-300); Phosphorous 4.8 mg/dL (2.7-4.5); Potassium 3.8 mEq/L (3.5-5.1); Sodium 138 mEq/L (136-145); eGFR For Non-African Americans > 60 (> 60)
[2018-11-02] MEDS: *HR* Heparin 5,000 UNIT/ML VIAL SQ SCH (05:51)
[2018-11-02] MEDS: *HR* OxyCODONE Immed Rel 5 MG TABLET PO PRN ×2 (05:51→14:25)
[2018-11-02 06:25] VITALS: BP 132/91
--- NOTE | 2018-11-02 07:33 | Orthopedics Progress Note ---
Date of Encounter: 11/02/18 Time of Encounter: 07:32 - Assessment and Plan (1) Abscess of hand Current Visit: Yes Status: Acute Subjective Interval history: S: Resting in bed comfortably Expected postoperative pain; improving O: AFVS Right dorsal hand wound evaluated. Subtle improvement in the swelling and redness Panda drain pulled Grossly flexes and extends digits with limitation due to pain and swelling The fingertips are all grossly sensate and well-perfused, and the radial artery pulse is 2+. Cultures showing Group A strep WBC improved to normal. A: Post I&D of the right dorsal wrist x 2 P: No significant purulence at the time of the second I&D. Continue antibiotics per the primary team and ID Elevation of the right upper extremity. Daily dressing changes. Orthopedically stable; No plans for further I and D. Objective Vital signs: Vital Signs Temp Pulse Resp BP Pulse Ox 11/02/18 06:23 98.0 F 57 15 132/91 97 11/02/18 03:27 98.7 F 73 15 129/82 98 11/01/18 23:45 98.8 F 82 16 160/94 100 11/01/18 19:48 96 11/01/18 19:14 98.8 F 91 16 156/105 96 11/01/18 14:46 98.3 F 83 15 134/78 95 11/01/18 10:37 97.8 F 76 15 144/101 94 Intake and Output 11/01/18 11/01/18 11/02/18 15:59 23:59 07:59 Intake Total 150 / 570 250 / 570 250 / 250 Output Total 1900 / 3350 0 / 3350 2600 / 2600 Balance -1750 / -2780 250 / -2780 -2350 / -2350 Intake: IV Fluids 150 / 450 250 / 450 250 / 250 Cleocin Premix 900 MG/50 ML 900 50 / 150 50 / 150 50 / 50 mg In 50 ml @ 50 mls/hr IVPB Q8HR RONI Rx#:[id number] Cubicin 500 MG In 0.9 % Sodium 100 / 100 Chloride 100 ML @ 200 mls/hr IVPB Q24H RONI Rx#:[id number] Pfizerpen 4,000,000 UNIT In 0.9 200 / 200 200 / 200 % Sodium Chloride 100 ML @ 100 mls/hr IVPB Q4HR RONI Rx#: [id number] Oral 0 / 120 0 / 0 Output: Urine 1900 / 3350 0 / 3350 2600 / 2600 Other: # Voids 4 Weight 87.9 kg Patient Weight 11/02/18 23:59 Weight 87.9 kg - Labs CBC & BMP: 11/02/18 04:45 11/02/18 04:45 Labs: Abnormal lab results WBC 13.4 K/mcL (4.3-11.1) H 10/31/18 03:45 RBC 3.72 M/mcL (3.82-4.97) L 11/02/18 04:45 MCV 100.8 fL (83.0-100.0) H 11/02/18 04:45 MCH 33.9 pg (28.0-33.3) H 11/02/18 04:45 30.0 % (0-4) H 10/29/18 11:31 4.0 % (0) H 10/29/18 11:31 9.0 K/mcL (1.6-8.9) H 10/31/18 03:45 0.4 K/mcL (0.0-0.2) H 10/29/18 11:31 Present (Not Present) A 10/29/18 11:31 ESR 65 mm/hr (0-15) H 10/31/18 03:45 Sodium 135 mEq/L (136-145) L 10/30/18 05:11 Chloride 109 mEq/L (98-107) H 10/31/18 03:45 Carbon Dioxide 19 mEq/L (23-29) L 10/31/18 03:45 Glucose 121 mg/dL (70-105) H 11/02/18 04:45 POC Glucose 107 mg/dL (70-99) H 10/31/18 12:07 279 (280-300) L 10/30/18 05:11 Calcium 8.4 mg/dL (8.6-10.3) L 10/29/18 11:31 Phosphorus 4.8 mg/dL (2.7-4.5) H 11/02/18 04:45 228 mg/L (Less than 10) H 10/31/18 03:45 U Marijuana (THC) Screen Positive ng/mL (Cutoff = 50) H 10/29/18 20:55 Consult Discharge Plan - Plan Referrals: NONE,PCP [Primary Care Provider] -
[2018-11-02] MEDS: Lactobacillus 1 EACH CAP.SPRINK PO SCH (08:12)
[2018-11-02] MEDS: amLODIPine 5 MG TABLET PO SCH (08:13)
[2018-11-02] MEDS: Gabapentin 300 MG CAPSULE PO SCH ×2 (08:13→14:25)
[2018-11-02] MEDS: Nicotine 21 MG PATCH.TD24 TD SCH (08:13)
[2018-11-02 09:30] LABS: Alanine Aminotransferase 21 Units/L (7-52); Albumin 3.7 g/dL (3.5-5.7); Albumin/Globulin Ratio 1.2 (1.1-2.2); Alkaline Phosphatase 81 Units/L (34-104); Amylase 14 Units/L (29-103); Aspartate Amino Transferase 18 Units/L (13-39); Bilirubin,Indirect 0.3 mg/dL (0.0-1.2); Bilirubin,Total 0.3 mg/dL (0.3-1.0); Globulin 3.1 g/dL (2.4-3.5); Lipase 11 Units/L (11-82); Total Protein 6.8 g/dL (6.4-8.9)
--- NOTE | 2018-11-02 10:41 | Discharge Summary ---
Orders not resulted at time of discharge: Pending orders 10/28/18 22:38 Culture,Blood [BC] Stat 10/28/18 23:17 Culture,Anaerobic [RM] Stat 10/28/18 23:19 Culture,Wound [RM] Stat 10/29/18 02:05 Culture,Anaerobic [RM] Routine Fungal Culture [MYC] Routine 10/31/18 21:52 Culture,Blood [BC] Stat 11/03/18 04:00 Basic Metabolic Panel AM 0400 CBC [Complete Blood Count] [HEME] AM 0400 Magnesium AM 0400 Phosphorous AM 0400 11/04/18 04:00 Basic Metabolic Panel AM 0400 CBC [Complete Blood Count] [HEME] AM 0400 Magnesium AM 0400 Phosphorous AM 0400 Date of Encounter: 11/02/18 Time of Encounter: 10:37 - Discharge Diagnosis (1) Abscess of right hand Priority: Primary Status: Resolved (2) Cellulitis of right hand Priority: Primary Status: Acute (3) Sepsis Priority: Secondary Status: Ruled-out Qualifiers: Sepsis type: sepsis due to unspecified organism Qualified Code(s): A41.9 - Sepsis, unspecified organism (4) Hepatitis C Priority: Secondary Status: Chronic Qualifiers: Viral hepatitis chronicity: chronic Hepatic coma status: without hepatic coma Qualified Code(s): B18.2 - Chronic viral hepatitis C (5) Anxiety disorder Priority: Secondary Status: Chronic Qualifiers: Anxiety disorder type: unspecified anxiety disorder Qualified Code(s): F41.9 - Anxiety disorder, unspecified (6) Depressive disorder Priority: Secondary Status: Chronic (7) Hypertension Priority: Secondary Status: Chronic Qualifiers: Hypertension type: essential hypertension Qualified Code(s): I10 - Essential (primary) hypertension Hospital course: Ms. Bhat is a 38 year old female with substance use disorder and depression who presented to the ER with 4 days of right hand pain and swelling that developed after suffering a cut to her middle finger at work reportedly. On arrival here she was febrile and tachycardic. Lab worked revealed leukocytosis of 27.0 and CRP of 239. She was started on vancomycin but developed a systemic allergic reaction prompting stoppage and diphenhydramine. She has seen by the orthopedic service with the recommendation to undergo urgent incision and drainage of the dorsal hand infection and was taken to the OR where copious amounts of grossly purulent material was evacuated that had tracked deep to the extensor tendons. CT/CT UE RT w con IMPRESSION: Soft tissue edema and inflammation along the dorsal aspect of the hand. No fluid collection. Would culture: grew Group A strep. ID consulted for antibiotics management. Recommended to DC patient on penicillin and Clindamycin to complete 14 days of antibiotics therapy. Patient recommended to follow up with ortho within a week of hospital discharge. Patient is hemodynamically stable to be discharged. - Time Spent with Patient Total time spent providing and/or coordinating discharge services: Time spent: Greater than 30 minutes (35) - Discharge Medications Prescriptions: New Clindamycin HCl [Cleocin HCl] 300 mg PO TID 10 Days #30 cap Lactobacillus [Culturelle] 2 each PO DAILY 30 Days #30 cap.sprink Penicillin VK 500 mg PO BID 10 Days #20 tablet Tramadol HCl [Ultram] 50 mg PO TID PRN 5 Days #10 tab PRN Reason: Pain Continued Acetaminophen [Tylenol] 650 mg PO Q6HR PRN #20 tablet PRN Reason: Pain amLODIPine [Norvasc] 5 mg PO DAILY Gabapentin [Neurontin] 900 mg PO TID Mirtazapine [Remeron] 15 mg PO HS Home Medications: Acetaminophen [Tylenol] 650 mg PO Q6HR PRN #20 tablet 04/07/16 [Rx] Gabapentin [Neurontin] 900 mg PO TID 10/30/18 [History] Mirtazapine [Remeron] 15 mg PO HS 10/30/18 [History] amLODIPine [Norvasc] 5 mg PO DAILY 10/30/18 [History] Clindamycin HCl [Cleocin HCl] 300 mg PO TID 10 Days #30 cap 11/02/18 [Rx] Lactobacillus [Culturelle] 2 each PO DAILY 30 Days #30 cap.sprink 11/02/18 [Rx] Penicillin VK 500 mg PO BID 10 Days #20 tablet 11/02/18 [Rx] Tramadol HCl [Ultram] 50 mg PO TID PRN 5 Days #10 tab 11/02/18 [Rx] Allergies/Adverse Reactions: Allergy/AdvReac Type Severity Reaction Status Date / Time trimethoprim [From Bactrim] Allergy Severe Difficulty Verified 10/30/18 13:33 Breathing ciprofloxacin [From Cipro] Allergy Hives Verified 10/02/18 13:53 doxycycline Allergy Hives Verified 10/02/18 13:53 Sulfa (Sulfonamide Allergy Hives Verified 10/02/18 13:53 Antibiotics) sulfamethoxazole Allergy Hives Verified 10/02/18 13:53 [From Bactrim] vancomycin Allergy Difficulty Verified 10/30/18 13:33 Breathing Date of admission: 10/29/18 01:38 Primary care physician: PCP NONE Consults: 10/29/18 10:13 Consult to Infectious Diseases [CONS] Routine Consulting Provider: Infectious Disease [place] Reason for Consult: right hand cellulitis Call Completed: No 10/30/18 12:17 Consult to Invasive Line Access Team [CONS] Routine Reason for Consult: poor vascu;ar access Line Type: EPIV - Constitutional Vitals: Temp Pulse Resp BP Pulse Ox 98.0 F 57 15 132/91 97 11/02/18 06:23 11/02/18 06:23 11/02/18 06:23 11/02/18 06:23 11/02/18 06:23 Exam: Vitals: Reviewed General: Alert and oriented x4. No distress Cardiovascular: RRR, normal S1 & S2, no rubs, murmurs or gallops. Lungs: CTA b/l, no wheezes or crackles. Abdomen: Obese, soft, non-tender, no rigidity. NABS in all 4 quadrants Extremities: mild erythema and edema of the right hand. Neurological: Normal cognition and motor skills. Rest of the physical exam is non contributory - Patient Status Disposition: Home, Self-Care Condition: Good Functional capacity at discharge: independent ambulation Overall status at discharge: patient is progressing back to baseline - Discharge Instructions Follow Up With: NONE,PCP [Primary Care Provider] - (Please call [phone], to set up appointment with PCP) Forms: Work/School Release, Inpatient Work/School Release - Diet and Activity Activity: resume usual activities as tolerated Diet: low salt diet
--- NOTE | 2018-11-02 11:59 | Infectious Disease Progress No ---
ID Progress Note Date of Encounter: 11/02/18 Time of Encounter: 10:30 - Subjective Subjective: Patient seen and examined. No acute events noted overnight. Patient complains of pain/stiffness in the right hand surgical site, but states it is actually feeling better today. Denies chest pain, shortness of breath, but does report a chronic cough that is at baseline. Denies nausea, vomiting, diarrhea, or constipation. States overall her appetite is much better. Complains of some upper abdominal pain and bloating, but states it is better. No BM since Monday which the patient states is normal for her. Denies urinary complaints. Denies oral thrush or skin rashes. - Objective CBC & Chem 7: 11/02/18 04:45 11/02/18 04:45 - Exam Vitals: Temp Pulse Resp BP Pulse Ox 98.0 F 57 15 132/91 97 11/02/18 06:23 11/02/18 06:23 11/02/18 06:23 11/02/18 06:23 11/02/18 06:23 Exam: Head: Atraumatic, normal inspection, normocephalic. Eye: EOMI, PERRLA, no scleral icterus noted. ENT: Mucous membranes moist. No odontogenic infection noted. Neck: Normal inspection, no meningismus. Respiratory: Clear to auscultation. No rales, respiratory distress, rhonchi, or wheezes noted. Cardiovascular: Regular rate and rhythm, S1 and S2 audible. No murmurs, rubs, or gallops. GI: Soft, distended, normal bowel sounds. Tenderness noted to the epigastric and RUQ regions improved. Extremities: Dressing noted to the right upper extremity with dressing clean, dry, and intact. Positive motor and sensation to the distal extremity. Capillary refill is brisk. Mild edema noted to the fingers. Back: Normal inspection. No vertebral tenderness noted. Neurological: Alert, oriented 3, no focal deficits. Psychiatric: normal affect, normal mood. Skin: Dry, intact, warm. Normal color. No rashes. - Assessment and Plan (1) Sepsis Current Visit: Yes Status: Ruled-out The patient had 3 sepsis criteria on admission. Likely secondary to right hand cellulitis and abscess. Improved. Afebrile. Tachycardia resolved. WBC trending normal. Blood cultures drawn 10/28/18 are no growth to date 2 sets. Qualifiers: Sepsis type: sepsis due to unspecified organism Qualified Code(s): A41.9 - Sepsis, unspecified organism SNOMED Code(s): 24766243 (2) Abscess of right hand Current Visit: Yes Status: Resolved Location: Right hand. Causative organism: GAS. Etiology: Unclear. The patient does report having a cut to her hand recently. CT of the right upper extremity 10/29/18 showed soft tissue edema and inflammation along the dorsal aspect of the hand without fluid collection. 10/29/2018 status post incision, drainage, irrigation, debridement of right hand by Dr. Causey. Intra-Op with copious amount of purulence. Cultures sent and are positive for group A strep. Antibiotics transitioned from cefepime, Flagyl, and daptomycin to dapto and Clinda once cultures resulted positive. Status post second look irrigation and debridement 10/31/[address] Causey. Operative note reviewed. No evidence of infection noted. Repeat cultures were obtained and are no growth. Currently on IV PCN and clindamycin. SNOMED Code(s): 31435536134695935 (3) Cellulitis of right hand Current Visit: Yes Status: Acute SNOMED Code(s): 09433615 (4) Allergy to multiple antibiotics Current Visit: Yes Status: Acute Cipro, doxycycline, Bactrim, sulfa listed. Does not recall the type of allergic reaction that she had. Vancomycin - swelling of the tongue. SNOMED Code(s): 044820605734483 (5) Hepatitis C Current Visit: Yes Status: Chronic Dx in 03/2016 Never treated. Secondary to history of IVDU. HIV non-reactive. Hep B immune. Qualifiers: Viral hepatitis chronicity: chronic Hepatic coma status: without hepatic coma Qualified Code(s): B18.2 - Chronic viral hepatitis C SNOMED Code(s): 40631794 (6) Depressive disorder Current Visit: No Status: Chronic SNOMED Code(s): 33511904 (7) Anxiety disorder Current Visit: No Status: Chronic Qualifiers: Anxiety disorder type: unspecified anxiety disorder Qualified Code(s): F 41.9 - Anxiety disorder, unspecified SNOMED Code(s): 456592936 - Recommendations Recommendations: Await repeat intraoperative cultures to finalize. Await blood cultures to finalize. Wound care and activity per the ortho-hand team. Continue clindamycin 900mg IV Q8H. Continue PCN 4 million units IV Q4H. Continue probiotics. Duration treatment depends on the clinical picture, but likely 14 days post-op . Can likely transition to PO Clindamycin 300mg BID and PCN V 500mg PO QID through 11/12/18. Monitor renal function and dose adjust antibiotics. Consult Discharge Plan - Plan Referrals: NONE,PCP [Primary Care Provider] - (Please call [phone], to set up appointment with PCP) Prescriptions: Clindamycin HCl [Cleocin HCl] 300 mg PO TID 10 Days #30 cap Lactobacillus [Culturelle] 2 each PO DAILY 30 Days #30 cap.sprink Penicillin VK 500 mg PO BID 10 Days #20 tablet
== END 2018-11-02 14:50 | disposition home or self-care (01) | DRG 951 ==
LOC: EMEROOARM 22:08 → 3ANU 10-29 01:24 → SUATTDRO 10-29 01:38
PROVIDERS: ADMIT Internal Medicine; ATTEND Internal Medicine